=== PATIENT | male | born 1965 | race Caucasian/White ===

== ENCOUNTER 2016-10-30 18:53 | Inpatient (IN) | payer BC, OTHER ==
[~2016-10-30] VITALS: Ht 185.4 cm; Wt 68.0 kg
[2016-10-30 20:00] VITALS: BP 115/63
--- NOTE | 2016-10-30 20:00 | NUR ---
Admission Note Pt is a 51 year old male admitted to [facility] on 10/30/2016 for ETOH/Benzo/Methamphetamine Dependence - on the unit at 2000. Pt has NKA, reports hx of seizure - last seizure on September 2016 d/t withdrawal. Pt was able to provide urine drug screen. Upon admission CIWA 4, VS: 115/64, P 79, Temp 97.39, R 16, SpO2 96%, no pain rated 0/10, weight 150 and height 6'0". Pt does not have a primary care provider, has reports being hospitalized on "08/2016 because of swollen feet" as reported per pt. Pt is currently homeless. Pt is a poor historian d/t intoxication. Substance abuse history is as follows: 1. ETOH - Vodka 1 liter/daily, last intake of "half a botte" on 10/30/2016, at this rate for 11 days, pt reports he has been drinking since age 14. 2. Xanax - 1mg/daily, last intake of 1mg on 10/28/2016, at this rate for the past month. 3. Methamphetamine 5g/daily via smoke, last intake of 5g via smoke on 10/29/2016. When does not use, he experiences, "I shake all over and get depressed" Treatment hx as reported by patient: 1. [facility], 2. [facility] in 2015 and 3. [facility], September 2016. Pt longest sober period is for 3 years from [id number], as stated by pt. Pt's father and brother use cocaine, as reported by pt. Pt reports he smokes 1 pack/daily. PMH: Diabetes Mellitus, Pancreatitis, Anxiety and Depression. Pt denies sx history. Pt brought medications, reconciled. Upon assessment, intoxicated, is a poor historian, is arousable, cooperative, PERRLA. Breathing is even and unlabored, lungs sounds clear in all lobes, heart rate regular, denies SOB/chest pain, skin, warm - moist and intact - no wounds/skin abrasions noted. Bowel sounds active x4, abdomen soft. Ankles noted to have +1 edema - feet/ankles elevated on pillow. Pt denies SI/HI, education handouts provided, at bedside. Pt oriented to room and encouraged to notify staff with any concerns. Safety measures in place, call light within reach, bed locked and in low position. Will continue to monitor. Addendum: 10/31/16 at 0600 by VALERIE PINZON RN Treatment History Clarified: [facility] d/t swollen ankles
[2016-10-30] MEDS ORDERED: MAGNESIUM HYDROXIDE 30 ML LIQUID UDC PO PRN (22:00)
[2016-10-30] MEDS ORDERED: ACETAMINOPHEN 325 MG TABLET PO PRN (22:00)
[2016-10-30] MEDS ORDERED: THIAMINE HCL 200 MG/2 ML VIAL IM ONE (22:00)
[2016-10-30] MEDS ORDERED: diphenhydrAMINE 50 MG CAPSULE PO PRN (22:00)
[2016-10-30] MEDS ORDERED: LOPERAMIDE HCL 2 MG CAPSULE PO PRN ×2 (22:00)
[2016-10-30] MEDS ORDERED: DICYCLOMINE HCL 20 MG TABLET PO PRN (22:00)
[2016-10-30] MEDS ORDERED: MAG HYDROX/AL HYDROX/SIMETH 30 ML LIQUID UDC PO PRN (22:00)
[2016-10-30] MEDS ORDERED: LORAZEPAM 1 MG TABLET PO PRN ×2 (22:00)
[2016-10-30] MEDS ORDERED: LORAZEPAM 2 MG/1 ML VIAL IM PRN (22:00)
[2016-10-30] MEDS ORDERED: ONDANSETRON HCL 4 MG TABLET PO PRN (22:00)
[2016-10-30 23:01] LABS: ALANINE AMINOTRANSFERASE 47 U/L (16-63); ALKALINE PHOSPHATASE 71 U/L (50-136); AMYLASE 91 U/L (25-115); ASPARTATE AMINOTRANSFERASE 35 U/L (15-37); BILIRUBIN,TOTAL 0.2 mg/dL (0.2-1.0); CALCIUM 8.8 mg/dL (8.5-10.1); CARBON DIOXIDE 30 mmol/L (21-32); CHLORIDE 105 mmol/L (98-107); CREATININE 0.9 mg/dL (0.6-1.3); GFR 90 mL/min (>60); GLUCOSE 183 mg/dL (74-106); LIPASE 127 U/L (73-393); MAGNESIUM 1.8 mg/dL (1.8-2.4); POTASSIUM 3.5 mmol/L (3.5-5.1); SODIUM SERUM 141 mmol/L (136-145); TOTAL PROTEIN, SERUM 6.1 g/dL (6.4-8.2); UREA NITROGEN, BLOOD 17 mg/dL (7-18)
[2016-10-30 23:09] LABS: BASOPHILS % (AUTO) 0.6 % (0.0-2.0); EOSINOPHILS # (AUTO) 0.1 K/uL (0.0-0.7); EOSINOPHILS % (AUTO) 1.8 % (0.0-7.0); HEMATOCRIT 32.7 % (40.0-50.0); HEMOGLOBIN 10.8 g/dL (14.0-18.0); LYMPHOCYTES # (AUTO) 2.1 K/uL (0.8-4.8); MEAN CORPUSCULAR HEMOGLOBIN 31.7 uug (27.0-31.0); MEAN CORPUSCULAR HGB CONC 33 g/dL (32.0-37.0); MEAN CORPUSCULAR VOLUME 95.8 fL (82.0-92.0); MONOCYTES # (AUTO) 0.7 K/uL (0.1-1.30); MONOCYTES % (AUTO) 10.5 % (0.0-11.0); NEUTROPHILS # (AUTO) 3.9 K/uL (1.8-8.9); NEUTROPHILS % (AUTO) 56.1 % (38.5-71.5); PLATELET COUNT (AUTO) 259 K/uL (150-450); RED BLOOD CELL COUNT(AUTO) 3.41 MIL/uL (4.70-6.10); RED CELL DISTRIBUTION WIDTH 12.8 % (11.5-14.5); WHITE BLOOD COUNT (AUTO) 6.8 K/uL (4.0-11.2)
[2016-10-30 23:14] LABS: THYROID STIMULATING HORMONE 2.829 mIU/mL (0.358-3.740)
[2016-10-30 23:18] LABS: ETHANOL < 3 MG/DL (0-0); HIV-1 p24 ANTIGEN NON REACTIVE (NONREACTIVE); HIV-1/2 ANTIBODY NON REACTIVE (NONREACTIVE)
[2016-10-30] MEDS ORDERED: DEXTROSE 50% 50 ML DISP.SYRIN IV PRN (23:45)
--- NOTE | 2016-10-30 23:50 | NUR ---
INSULIN ADMINISTRATION Pt has diagnosis of DM. Accu-check completed - Blood Sugar 218 Humulin R 4 units administered in left deltoid as ordered per-sliding scale orders. Safety measures in place, call light within reach, side rails up x2, bed locked and in low position. Will continue to monitor.
[2016-10-31] VITALS: BP 131/86
--- NOTE | 2016-10-31 | NUR ---
Vital Signs BP 131/86, pulse 98, SpO2 97%, respirations 16, temp 97.9, 0/10 pain CIWA deferred d/t pt sleeping - to assess while pt is awake as ordered. No s/s of distress noted, respirations even and unlabored. Safety measures in place, call light within reach, side rails up x2, bed locked and in low position. Will continue to monitor.
[2016-10-31] MEDS: BLOOD SUGAR DIAGNOSTIC 1 EACH STRIP VI SCH ×5 (00:02→21:49)
[2016-10-31] MEDS: INSULIN REGULAR, HUMAN 300 UNIT/3 ML VIAL SQ PRN ×5 (00:11→21:51)
[2016-10-31 01:58] LABS: *AMPHETAMINE, URINE POSITIVE (NEGATIVE); *BARBITURATE, URINE NEGATIVE (NEGATIVE); *CANNABINOID, URINE NEGATIVE (NEGATIVE); *COCCAINE, URINE NEGATIVE (NEGATIVE); *OPIATE, URINE NEGATIVE (NEGATIVE); *PHENCYCLIDINE SCREEN,URINE NEGATIVE (NEGATIVE)
[2016-10-31 04:00] VITALS: BP 119/70
--- NOTE | 2016-10-31 04:00 | NUR ---
Vital Signs BP 119/70, pulse 72, SpO2 98%, respirations 16, temp 97.7, 0/10 pain CIWA deferred d/t pt sleeping - to assess while pt is awake as ordered. No s/s of distress noted, respirations even and unlabored. Safety measures in place, call light within reach, side rails up x2, bed locked and in low position. Will continue to monitor.
[2016-10-31] MEDS ORDERED: ACET-73 PO (04:11)
[2016-10-31] MEDS ORDERED: NEOM14.216 TP (04:11)
[2016-10-31] MEDS ORDERED: METF850T2 PO (04:11)
[2016-10-31] MEDS ORDERED: CITA20TA11 PO (04:11)
[2016-10-31] MEDS ORDERED: SENN25TA PO (04:11)
[2016-10-31] MEDS: IBUPROFEN 400 MG TABLET PO PRN (05:52)
[2016-10-31] MEDS: CLONIDINE HCL 0.1 MG TABLET PO PRN (05:53)
[2016-10-31] MEDS ORDERED: IBUPROFEN 400 MG TABLET ONE (05:59)
[2016-10-31] MEDS ORDERED: CLONIDINE HCL 0.1 MG TABLET ONE (05:59)
--- NOTE | 2016-10-31 05:59 | NUR ---
PRN Administered Upon awakening, pt reports muscle aches, anxiety, agitation noted, skin clammy. Clonidine 0.1mg PRN and Motrin 400mg PRN administered. Safety measures in place, will continue to monitor.
--- NOTE | 2016-10-31 07:00 | NUR ---
End of Shift Pt is a 51 year old male admitted on 10/30/2016 for ETOH/benzo/meth dependence. NKA, regular diet, fall/seizure precautions and full code. PMH: DM, Pancreatitis, anxiety and depression, last seizure in September 2016 d/t withdrawal. Pt UDS came back positive for amphetamines. During shift, Accu-check completed - Pt Blood Sugar 218, Humulin R 4 units administered in left deltoid as ordered per-sliding scale orders. Clonidine 0.1mg and Motrin 400mg PRN administered. Pt refused Vitamin B1 inj. CIWA 4, pt slept for 8 hours, intake of 2012 ml Po and voids x1. Safety measures in place, call light within reach, side rails up x2, bed locked and in low position. Endorsed to day shift nurse.
--- NOTE | 2016-10-31 07:30 | NUR ---
START OF SHIFT Received report from night coordinator nurse. 51 year old male patient admitted on 10/30/16 for ETOH, Xanax, and Methamphetamine dependence. Pt has been using for 11 days. Pt has hx of Diabetes Mellitus, pancreatitis, anxiety and depression. Pt is A/O x4. no taper has been started yet. Pt is receiving PRN medications. Pt reports history of seizure in sep 2016. Pt received PRN Clonidine and Motrin, slept for 8 hours. Most recent CIWA 4. Pt has accu check AC/HS and is receiving PO Glucophage and Insulin sliding scale. Pt is A/O x4. All needs met at this time. Will continue to monitor.
[2016-10-31 08:30] VITALS: BP 107/78
[2016-10-31] MEDS: METFORMIN HCL 500 MG TABLET PO SCH ×2 (08:32→17:15)
[2016-10-31] MEDS: THIAMINE HCL 100 MG TABLET PO SCH (08:33)
[2016-10-31] MEDS: FOLIC ACID 1 MG TABLET PO SCH (08:33)
[2016-10-31] MEDS: MULTIVITAMINS,THERAPEUTIC TABLET PO SCH (08:33)
--- NOTE | 2016-10-31 08:34 | NUR ---
PRN ATIVAN Pt has CIWA of 7, presents with signs of tremors, sweats, anxiety, agitation and itching, per MD order 1mg Ativan administered as ordered. Will reassess.
[2016-10-31] MEDS ORDERED: TUBERCULIN,PURIF.PROT.DERIV. 5 TU/0.1 ML TEST ID ONE (09:00)
--- NOTE | 2016-10-31 09:20 | NUR ---
PPD ADMINISTERED PD administered on LFA, to be read on 11/02/16.
--- NOTE | 2016-10-31 09:35 | NUR ---
REASSESSMENT Pt CIWA is 4, after PRN Ativan. Pt states anxiety decreased and denies dizziness, pt does not show signs of agitation.
[2016-10-31] MEDS ORDERED: LORAZEPAM 1 MG TABLET PO ONE (11:00)
--- NOTE | 2016-10-31 11:00 | NUR ---
ATIVAN HELD Pt is sedated, Ativan held at this time. RR even and unlabored. Will continue to monitor.
[2016-10-31] MEDS: LORAZEPAM 1 MG TABLET PO SCH ×3 (12:12→21:46)
--- NOTE | 2016-10-31 12:22 | NUR ---
ULTRASOUND ORDERED Ultrasound ordered on 11/01/16 for abdominal distension,per US tech, pt must be NPO at midnight for at least 8 hours. Will notify
[2016-10-31 13:00] VITALS: BP 116/80
[2016-10-31] MEDS: GABAPENTIN 300 MG CAPSULE PO SCH ×2 (14:18→21:46)
[2016-10-31 16:00] VITALS: BP 123/79
[2016-10-31] MEDS: METHOCARBAMOL 750 MG TABLET PO PRN ×2 (18:10→21:47)
--- NOTE | 2016-10-31 18:10 | NUR ---
PRN ROBAXIN Pt c/o of 8 body aches that are unrelieved bu nonpharmacological methods. PRN Robaxin administered as ordered.
--- NOTE | 2016-10-31 19:21 | NUR ---
END OF SHIFT Received report from lieutenant shift supervisor nurse. 51 year old male patient admitted on 10/30/16 for ETOH, Xanax, and Methamphetamine dependence. Pt has been using for 11 days. Pt has hx of Diabetes Mellitus, pancreatitis, anxiety and depression. Pt is A/O x4. Pt has been started on a 5 day Ativan taper and is tolerating it well. Pt reports history of seizure in sep 2016. Pt remains seizure free throughout shift. Most recent CIWA 6. Pt has accu check AC/HS and is receiving PO Glucophage and Insulin sliding scale. Pt remains compliant. PRN Robaxin was administered. Pt is to be NPO except meds after midnight. Pt is aware. V/S remain WNL All needs met at this time. assembler 1st shift nurse continue to monitor.
--- NOTE | 2016-10-31 19:30 | NUR ---
START OF SHIFT NOTE: Patient is a 51 y/o male admitted on 10/30/16 for ETOH/Xanax/Meth dependence. Pateint with past medical history of Diabetes Mellitus, Pancreatitis, Anxiety & Depression. Seizure and Fall precautions noted. Patient is on a consistent carb diet with no known food and drug allergies. Full Code status. Patient is NPO after midnight in preparation for his scheduled abdominal MILEY for tomorrow. Patient is aware and verbalized understanding. Patient is on a 5-day Ativan taper and tolerating well. Last CIWA is 6. Patientwas given PRN Robaxin for body aches during day shift. Patient is alert & oriented x4. No shortness of breath noted. Respiration even & unlabored. Abdomen soft & non-distended. Bowel sounds active in all four quadrants. No nausea/vomiting noted. Patient complains of 8/10 body aches. Bilateral hand tremors felt. No hallucinations. Patient denies SI/HI. Safety precautiopns are in place. Bed locked in lowest position. Both side rails up. Call light within pt's reach. Will continue to monitor patient.
[2016-10-31 20:00] VITALS: BP 114/61
[2016-10-31] MEDS ORDERED: TRAZODONE 50 MG TABLET ONE (21:38)
[2016-10-31] MEDS: TRAZODONE 100 MG TABLET PO PRN (21:47)
--- NOTE | 2016-10-31 21:47 | NUR ---
PRN Trazodone Patient complains of insomnia. PRN Trazodone given as ordered. Will continue to monitor.
--- NOTE | 2016-10-31 22:47 | NUR ---
PRN Reassessment Patient asleep in bed and appears comfortable. No shortness of breath noted. Respiration even & unlabored. Safety precautions are in place. Will continue to monitor patient.
--- NOTE | 2016-11-01 | NUR ---
Vitals/Ciwa deferred Patient refused vitals at this time. No shortness of breath noted. Respiration even & unlabored. Safety precautions are in place. Will continue to monitor.
[2016-11-01] MEDS: METHOCARBAMOL 750 MG TABLET PO PRN (02:44)
--- NOTE | 2016-11-01 04:00 | NUR ---
Vitals/Ciwa deferred Patient refused vitals at this time. Patient asleep at this time. No shortness of breath noted. Respiration even & unlabored. Safety precautions are in place. Will continue to monitor.
--- NOTE | 2016-11-01 05:30 | NUR ---
RN NOTE Pt refused to remain on NPO for his abdominal MILEY procedure in AM. Pt stated "I did not agree for this MILEY and I don't need it. I dont have any abdominal pain and I go to the bathroom regularly. I am hungry and I want to eat." Explained to patient risk and benefits but still refused. Charge nurse made aware. Will notify MD in AM.
--- NOTE | 2016-11-01 07:17 | NUR ---
END OF SHIFT NOTE: Patient is a 51 y/o male admitted on 10/30/16 for ETOH/Xanax/Meth dependence. Pateint with past medical history of Diabetes Mellitus, Pancreatitis, Anxiety & Depression. Seizure and Fall precautions noted. Patient is on a consistent carb diet with no known food and drug allergies. Full Code status. Patient refuses to have an abdominal MILEY later today and refused to remain NPO. Patient is non-compliant and refused vitals at 0000 & 0400. Patient is on a 5-day Ativan taper and tolerating well. Last CIWA is 6. Pt was given PRN Robaxin and were effective. Pt slept for a total of 10 hours. Pt consumed 1210ml of fluids. Voided 2x with no bowel movement. Pt remained stable and vitals remained WNL. No shortness of breath noted. Respiration even & unlabored.All needs attended & met. Safety precautions are in place. Will endorse pt to day shift nurse.
--- NOTE | 2016-11-01 07:45 | NUR ---
START OF SHIFT Received report from overnight associate nurse. 51 year old male patient admitted on 10/30/16 for ETOH, Xanax, and Methamphetamine dependence. Pt has been using at this rate for 11 days. Pt has hx of Diabetes Mellitus, pancreatitis, anxiety and depression. Pt is A/O x4. Pt has been started on a 5 day Ativan taper and is tolerating it well. Pt reports history of seizure in sep 2016. Pt remains seizure free throughout shift. Most recent CIWA 6. Pt has accu check AC/HS and is receiving PO Glucophage and Insulin sliding scale. Pt remains compliant. Most recent BG was 164 HS, 3 units of regular Insulin administered. PRN Robaxin was administered and Trazodone administered, pt slept for 10 hours. Pt is noncompliant with NPO order and continues to eat, education provided, MD is aware. Pt is aware. MRSA swab done and results are pending. V/S remain WNL All needs met at this time. Will continue to monitor.
[2016-11-01 08:19] VITALS: BP 120/81
[2016-11-01] MEDS: INSULIN REGULAR, HUMAN 300 UNIT/3 ML VIAL SQ PRN ×3 (08:23→21:27)
[2016-11-01] MEDS: BLOOD SUGAR DIAGNOSTIC 1 EACH STRIP VI SCH ×4 (08:23→21:29)
[2016-11-01] MEDS: MULTIVITAMINS,THERAPEUTIC TABLET PO SCH (08:24)
[2016-11-01] MEDS: METFORMIN HCL 500 MG TABLET PO SCH ×2 (08:24→17:05)
[2016-11-01] MEDS: THIAMINE HCL 100 MG TABLET PO SCH (08:24)
[2016-11-01] MEDS: FOLIC ACID 1 MG TABLET PO SCH (08:25)
[2016-11-01] MEDS: GABAPENTIN 300 MG CAPSULE PO SCH ×3 (08:25→21:29)
[2016-11-01] MEDS: LORAZEPAM 1 MG TABLET PO SCH ×3 (08:25→21:28)
[2016-11-01 11:07] LABS: HEPATITIS B CORE AB, IgM Negative (Negative); HEPATITIS B SURFACE AG Negative (Negative)
[2016-11-01] MEDS ORDERED: CITALOPRAM 20 MG TABLET PO SCH (13:00)
[2016-11-01 13:07] VITALS: BP 114/78
[2016-11-01] MEDS: CITALOPRAM 20 MG TABLET PO SCH (15:38)
[2016-11-01 17:08] VITALS: BP 121/79
--- NOTE | 2016-11-01 18:37 | NUR ---
END OF SHIFT 51 year old male patient admitted on 10/30/16 for ETOH, Xanax, and Methamphetamine dependence. Pt has been using at this rate for 11 days. Pt has hx of Diabetes Mellitus, pancreatitis, anxiety and depression. Pt is A/O x4. Pt has been started on a 5 day Ativan taper and is tolerating it well. Pt remains seizure free throughout shift. Most recent CIWA 3. Pt has accu check AC/HS and is receiving PO Glucophage and Insulin sliding scale. Last BG was 149, 2 units regular Insulin administered as ordered. No PRN medications needed or administered .Pt remains compliant. Abdominal ultrasound done to r/o ascites, results do not indicate ascites, MD is aware. MRSA swab done and results are negative. V/S remain WNL All needs met at this time. slot shift supervisor to continue to monitor.
--- NOTE | 2016-11-01 19:30 | NUR ---
START OF SHIFT NOTE: Patient is a 51 y/o male admitted on 10/30/16 for ETOH/Xanax/Meth dependence. Pateint with past medical history of Diabetes Mellitus, Pancreatitis, Anxiety & Depression. Seizure and Fall precautions noted. Patient is on a consistent carb diet with no known food and drug allergies. Full Code status. Patient is on a 5-day Ativan taper and tolerating well. Last CIWA is 3. No PRN medications given during day shift. Patient is alert & oriented x4. No shortness of breath noted. Respiration even & unlabored. Abdomen soft & non-distended. Bowel sounds active in all four quadrants. No nausea/vomiting noted. No complaints of pain/discomfort noted. Bilateral hand tremors felt. No hallucinations. Patient denies SI/HI. Safety precautiopns are in place. Bed locked in lowest position. Both side rails up. Call light within pt's reach. Will continue to monitor patient.
[2016-11-01 20:00] VITALS: BP 118/69
[2016-11-01] MEDS ORDERED: INSULIN DETEMIR 300 UNIT/3 ML CARTRIDGE SQ SCH (21:00)
[2016-11-01] MEDS ORDERED: INSULIN GLARGINE,HUM 300 UNITS/3 ML CARTRIDGE SQ SCH (21:00)
[2016-11-01] MEDS: TRAZODONE 100 MG TABLET PO PRN (21:36)
--- NOTE | 2016-11-02 07:15 | NUR ---
END OF SHIFT NOTE: Patient is a 51 y/o male admitted on 10/30/16 for ETOH/Xanax/Meth dependence. Patient with past medical history of Diabetes Mellitus, Pancreatitis, Anxiety & Depression. Seizure and Fall precautions noted. Patient is on a consistent carb diet with no known food and drug allergies. Full Code status. Patient is on a 5-day Ativan taper and tolerating well. Last CIWA is 3. No PRN medications were given. Pt slept for a total of 10 hours. Pt consumed 1210ml of fluids. Voided 2x with 1x bowel movement. Pt remained stable and vitals remained WNL. Patient still asleep at this time. No shortness of breath noted. Respiration even & unlabored. All needs attended & met. Safety precautions are in place. Will endorse pt to day shift nurse.
--- NOTE | 2016-11-02 07:55 | NUR ---
START OF SHIFT: RECEIVED PT A/O X 4. SITTING UP IN BED EATING COOKIES. EDUCATED PT ON IMPORTANCE OF EATING PROPERLY WITH DIABETES. BS 187. 3 UNITS HUMULIN R ADMINISTERED SQ ORDERED PER SLIDING SCALE. HE REPORTS SOME ANXIETY AND RESTLESSNESS. 5 DAY ATIVAN TAPER IN PROGRESS. CIWA 2. ENCOURAGED INCREASED FLUIDS. ENCOURAGED GROUP ATTENDANCE TO IMPROVE COPING SKILLS AND PREVENT RELAPSE. WILL CONTINUE TO MONITOR.
[2016-11-02 08:00] VITALS: BP 122/79
[2016-11-02] MEDS: BLOOD SUGAR DIAGNOSTIC 1 EACH STRIP VI SCH ×4 (08:04→20:45)
[2016-11-02] MEDS: MULTIVITAMINS,THERAPEUTIC TABLET PO SCH (08:05)
[2016-11-02] MEDS: METFORMIN HCL 500 MG TABLET PO SCH ×2 (08:05→17:19)
[2016-11-02] MEDS: GABAPENTIN 300 MG CAPSULE PO SCH ×3 (08:05→20:38)
[2016-11-02] MEDS: LORAZEPAM 1 MG TABLET PO SCH ×4 (08:06→20:51)
[2016-11-02] MEDS: THIAMINE HCL 100 MG TABLET PO SCH (08:06)
[2016-11-02] MEDS: FOLIC ACID 1 MG TABLET PO SCH (08:06)
[2016-11-02] MEDS: CITALOPRAM 20 MG TABLET PO SCH (08:06)
[2016-11-02] MEDS: INSULIN REGULAR, HUMAN 300 UNIT/3 ML VIAL SQ PRN ×5 (08:08→20:49)
[2016-11-02 12:00] VITALS: BP 113/64
[2016-11-02 16:00] VITALS: BP 119/78
--- NOTE | 2016-11-02 18:25 | NUR ---
END OF SHIFT: PT CONTINUES ON ATIVAN TAPER. HE PRESENTS WITH IRRITABLE MOOD AND CONGRUENT AFFECT. HE BECAME EASIL AGITATED IN AM BUT HAS BECOME MORE CALM LATER IN SHIFT. LAST CIWA 3. LAST BS 234. 4 UNITS R GIVEN PER SLIDING SCALE. EDUCATED PT ON DIET AND PROPER NUTRITION. PT EXPRESSED VERBAL UNDERSTANDING OF EDUCATION. NO PRNS GIVEN ON THIS SHIFT. WILL PASS SHIFT REPORT TO ONCOMING NIGHT NURSE
--- NOTE | 2016-11-02 19:30 | NUR ---
START OF SHIFT NOTE: Patient is a 51 y/o male admitted on 10/30/16 for ETOH/Xanax/Meth dependence. Pateint with past medical history of Diabetes Mellitus, Pancreatitis, Anxiety & Depression. Seizure and Fall precautions noted. Patient is on a consistent carb diet with no known food and drug allergies. Full Code status. Patient is on a 5-day Ativan taper and tolerating well. Last CIWA is 3. No PRN medications given during day shift. Patient has new order Seroquel PRN for agitation. Patient is alert & oriented x4. No shortness of breath noted. Respiration even & unlabored. Abdomen soft & non-distended. Bowel sounds active in all four quadrants. No nausea/vomiting noted. No complaints of pain/discomfort noted. Bilateral hand tremors felt. Patient apears anxious and agitated during vitals. No hallucinations. Patient denies SI/HI. Safety precautiopns are in place. Bed locked in lowest position. Both side rails up. Call light within pt's reach. Will continue to monitor patient.
[2016-11-02 20:00] VITALS: BP 130/85
[2016-11-02] MEDS: QUETIAPINE FUMARATE 25 MG TABLET PO PRN (20:38)
[2016-11-02] MEDS: TRAZODONE 100 MG TABLET PO PRN (20:38)
--- NOTE | 2016-11-02 20:38 | NUR ---
PRN administered Patient noted to be agitated and refused vitals. Offered patient Seroquel medication for agitation and pt agreed. PRN Seroquel given as ordered. Patient also requested for medication for sleep. PRn Trazodone given as ordered. Will monitor for effectiveness of medication.
[2016-11-02] MEDS: INSULIN DETEMIR 300 UNIT/3 ML CARTRIDGE SQ SCH (20:47)
--- NOTE | 2016-11-02 21:00 | NUR ---
RN Note Manually administered Ativan 1mg medication scheduled at 2100. Unable to scan barcode d/t half of barcode is gone. Charge nurse is aware.
--- NOTE | 2016-11-02 21:38 | NUR ---
PRN Reassessment PRN medication effective. Patient asleep at this time and appeaers comfortable. No shortness of breath noted. Respiration even & unlabored. Will continue to monitor patient.
--- NOTE | 2016-11-03 04:00 | NUR ---
Vitals/Ciwa deferred Patient refused vitals at this time. Patient asleep in bed and appears comfortable. No s/s of distress noted. respiration even & unlabored. Safety precautions are in place. Will continue to monitor patient.
--- NOTE | 2016-11-03 07:11 | NUR ---
END OF SHIFT NOTE: Patient is a 51 y/o male admitted on 10/30/16 for ETOH/Xanax/Meth dependence. Patient with past medical history of Diabetes Mellitus, Pancreatitis, Anxiety & Depression. Seizure and Fall precautions noted. Patient is on a consistent carb diet with no known food and drug allergies. Full Code status. Patient is on a 5-day Ativan taper and tolerating well. Last CIWA is 5. Pt was given PRN Trazodone for sleep and Seroquel for agitation and were effective. Pt slept for a total of 9 hours. Pt consumed 1846 ml of fluids. Voided 2x with no bowel movement. Pt remained stable and vitals remained WNL. Patient still asleep at this time. No shortness of breath noted. Respiration even & unlabored. All needs attended & met. Safety precautions are in place. Will endorse pt to day shift nurse.
--- NOTE | 2016-11-03 07:30 | NUR ---
START OF SHIFT NOTE: REPORT RECEIVED FROM AIRLINE HOSTESS NURSE. PT IS A 51YO MALE ADMITTED ON 10/30/16 FOR MEDICALLY SUPERVISED WITHDRAWAL: PT REPORTS DRINKING 1 LITER VODKA DAILY FOR 11 DAYS, TAKING XANAX 1MG PO DAILY FOR 1 MONTH, AND SMOKING 5GM METHAMPHETAMINE DAILY. PT IS ON DAY 4 OF A 5-DAY ATIVAN TAPER. LAST AIRLINE HOSTESS CIWA=5. PT RECEIVED PRN SEROQUEL AND PRN TRAZODONE THROUGHOUT THE NIGHT. PT HAS [facility] ACCU-CHECKS FOR DM; LAST AIRLINE HOSTESS FSBG WAS 131 MG/DL AND 2 UNITS INSULIN ADMINISTERED LAST NIGHT. PT IS ON CC CARB DIET AND PT IS NOT COMPLIANT. TB TO BE READ TODAY. PT REPORTS HX OF PANCREATITIS, ANXIETY, AND DEPRESSION. PT REPORTS HX OF SEIZURE, LAST IN 09/2070 R/T WITHDRAWAL. PT REPORTS NKA AND IS A FULL CODE. PT IS CURRENTLY AWAKE, SHOWERED, AND REQUESTING TO GO SMOKE. PT IS FRIENDLY UPON ASSESSMENT, BUT REPORTS ANXIETY AND AGITATION. ALL NEEDS ATTENDED AND MET AT THIS TIME. WILL CONTINUE TO MONITOR.
[2016-11-03 08:00] VITALS: BP 111/77
--- NOTE | 2016-11-03 08:17 | NUR ---
07:30 Accu-Chek AC Accu-Chek : FSBG is 91 mg/dL No insulin coverage required.
[2016-11-03] MEDS: THIAMINE HCL 100 MG TABLET PO SCH (08:22)
[2016-11-03] MEDS: FOLIC ACID 1 MG TABLET PO SCH (08:22)
[2016-11-03] MEDS: MULTIVITAMINS,THERAPEUTIC TABLET PO SCH (08:22)
[2016-11-03] MEDS: CITALOPRAM 20 MG TABLET PO SCH (08:22)
[2016-11-03] MEDS: METFORMIN HCL 500 MG TABLET PO SCH ×2 (08:22→17:13)
[2016-11-03] MEDS: LORAZEPAM 1 MG TABLET PO SCH ×3 (08:23→20:11)
[2016-11-03] MEDS: QUETIAPINE FUMARATE 25 MG TABLET PO PRN ×3 (08:23→20:11)
[2016-11-03] MEDS: GABAPENTIN 300 MG CAPSULE PO SCH ×3 (08:23→20:11)
[2016-11-03] MEDS: BLOOD SUGAR DIAGNOSTIC 1 EACH STRIP VI SCH ×4 (08:23→20:13)
--- NOTE | 2016-11-03 08:23 | NUR ---
PRN Seroquel: Pt c/o anxiety and agitation. Administered PRN Seroquel as ordered. Will continue to monitor.
--- NOTE | 2016-11-03 09:30 | NUR ---
Reassessment: Pt reports that PRN Seroquel was effective at reducing agitation. PRN Seroquel effective. Will continue to monitor.
[2016-11-03 12:00] VITALS: BP 109/72
--- NOTE | 2016-11-03 12:10 | NUR ---
11:30 Accu-Chek/Humulin-R 3 Units Ordered 11:30 AC blood glucose 168 mg/dL. Administered 3 units Humulin-R in right posterior deltoid as ordered according to sliding scale.
[2016-11-03] MEDS: INSULIN REGULAR, HUMAN 300 UNIT/3 ML VIAL SQ PRN ×3 (12:11→20:17)
[2016-11-03] MEDS: HYDROXYZINE PAMOATE 25 MG CAPSULE PO PRN (12:39)
[2016-11-03] MEDS: CLONIDINE HCL 0.1 MG TABLET PO PRN (12:40)
--- NOTE | 2016-11-03 12:40 | NUR ---
PRN Vistaril and PRN Clonidine: Pt c/o anxiety and agitation. Administered PRN Clonidine and PRN Vistaril as ordered. Will reassess in one hour.
--- NOTE | 2016-11-03 13:47 | NUR ---
Reassessment and PRN Seroquel: Pt reports that he is still feeling anxious and agitated. PRN Clonidine and PRN Vistaril not effective. Administered PRN Seroquel as ordered for agitation. Will continue to monitor.
--- NOTE | 2016-11-03 14:45 | NUR ---
Reassessment: Pt reports that PRN Seroquel was effective. Will continue to monitor.
[2016-11-03 16:00] VITALS: BP 120/80
--- NOTE | 2016-11-03 16:53 | NUR ---
16:30 Accu-chek/Humulin-R 8 Units: 16:30 ordered Accu-Chek blood glucose 330 mg/dL. Administered 8 units Humulin-R as ordered according to sliding scale. Educated pt regarding dietary compliance for DM. Pt verbalized understanding. Will continue to monitor.
--- NOTE | 2016-11-03 19:05 | NUR ---
Start of Shift Patient Received. Patient is in his room, awake, alert and verbally responsive. Breathing even and non labored. No signs of pain or discomfort noted. Patient is a 51 year old male admitted on 10/30/16 for ETOH Dependence, under the care of Dr. Green, currently receiving a 5 day Ativan taper. Patient verbalizes no known allergies, wishes to be full code, following a Consistent Carb Diet, placed on fall and seizure precautions. Past Medical History of DM, Pancreatitis, anxiety, and depression. Per endorsement, patient receives accu checks prior to meals and before bed. 8 units of insulin given at 1700. Last CIWA noted 7. Patient was given PRN Clonidine, Vistaril and Seroquel with all PRN medications noted to be effective. All needs attended to promptly. Will continue plan of care as ordered.
--- NOTE | 2016-11-03 19:24 | NUR ---
END OF SHIFT NOTE: PT IS A 51YO MALE ADMITTED TO [facility] ON 10/30/16 FOR MEDICALLY SUPERVISED WITHDRAWAL FROM ETOH AND BENZOS. PT REPORTS DRINKING 1 LITER VODKA DAILY FOR 11 DAYS, TAKING XANAX 1MG PO DAILY FOR 1 MONTH, AND SMOKING 5GM METHAMPHETAMINE DAILY. PT CONTINUES ON DAY 4 OF A 5-DAY ATIVAN TAPER. LAST CIWA=7 AT 16:00. ATIVAN TAPER MANAGED WITHDRAWAL SYMPTOMS, IN ADDITION TO PRN CLONIDINE AND PRN VISTARIL FOR ANXIETY, AND PRN SEROQUEL X2 FOR AGITATION. PT HAS [facility] ACCU-CHECKS FOR DM; LAST FSBG WAS 330 MG/DL AND 8 UNITS INSULIN ADMINISTERED AT 16:53. PT IS ON CC CARB DIET AND NOT COMPLIANT. TB READ TODAY WITH NEGATIVE RESULTS. PT REPORTS HX OF PANCREATITIS, ANXIETY, AND DEPRESSION. PT REPORTS HX OF SEIZURE, LAST IN 09/2070 R/T WITHDRAWAL. PT REPORTS NKA AND IS A FULL CODE. PT CONSUMED 100% OF ALL MEALS, HAD INTAKE 3275ML, OUTPUT URINE X5 AND STOOL X3. PT ENDORSED TO LEATHER WHITENER NURSE
[2016-11-03 20:06] VITALS: BP 129/81
--- NOTE | 2016-11-03 20:15 | NUR ---
PRN Medication Administration Patient noted to be agitated with increased anxiety. PRN Seroquel administered as ordered. Will continue to monitor for effectiveness.
[2016-11-03] MEDS: INSULIN DETEMIR 300 UNIT/3 ML CARTRIDGE SQ SCH (20:16)
--- NOTE | 2016-11-03 22:30 | NUR ---
PRN Medication Reassessment Patient noted in bed sleeping. PRN Seroquel noted to be effective. Will continue to monitor.
--- NOTE | 2016-11-04 00:15 | NUR ---
Vitals and CIWA Patient refused 0000 vitals prior to bed. Patient verbalized "I just want to sleep." Patient is in bed sleeping. Breathing even and non labored. No signs of pain or discomfort noted. Patient respirations noted to be 14. CIWA not able to be completed as per order. Will continue to monitor. Addendum: 11/04/16 at 0122 by SILVINO ZAMUDIO LVN Amended: Links added.
--- NOTE | 2016-11-04 04:13 | NUR ---
Vitals and CIWA Patient refused 0400 vitals prior to bed. Patient verbalized "I just want to sleep." Patient is in bed sleeping. Breathing even and non labored. No signs of pain or discomfort noted. Patient respirations noted to be 14. CIWA not able to be completed as per order. Will continue to monitor. Addendum: 11/04/16 at 0414 by SILVINO ZAMUDIO LVN Amended: Links added.
[2016-11-04] MEDS: QUETIAPINE FUMARATE 25 MG TABLET PO PRN (04:47)
--- NOTE | 2016-11-04 04:47 | NUR ---
PRN Seroquel: Pt reported agitation after waking up and being unable to go back to sleep. Pt noted with increased agitation and walking in and out of his room. Pt requested medication for his agitation. PRN Seroquel given as ordered. Will continue to monitor.
--- NOTE | 2016-11-04 06:00 | NUR ---
PRN Medication Reassessment Patient noted in bed, awake, alert and verbally responsive. Breathing even and non labored. Patient given PRN Seroquel and patient able to verbalize "Im feeling a little better now." Will continue to monitor.
--- NOTE | 2016-11-04 07:08 | NUR ---
End of Shift Patient is in bed awake, alert and verbally responsive. Breathing even and non labored. No signs of pain or discomfort noted. Patient is a 51 year old male admitted on 10/30/16 for ETOH Dependence, under the care of Dr. Green, currently receiving a 5 day Ativan taper. Patient verbalizes no known allergies, wishes to be full code, following a Consistent Carb Diet, placed on fall and seizure precautions. Past Medical History of DM, Pancreatitis, anxiety, and depression. Patient noted with a BS of 175 and 3 units of Humulin as well as 8 units of Levemir. Patient was given PRN Seroquel with routine 2100 medications as well as a second dose at 0445 for increased agitation. Medications noted to be effective. Patient noted to be noncompliant with diet with MD aware. Re-educated patient on importance on proper diet. Patient verbalized understanding. All needs attended to promptly. Will endorse to continue plan of care as ordered.
--- NOTE | 2016-11-04 07:30 | NUR ---
START OF SHIFT Received report from shift production supervisor nurse. 51 year old male admitted on 10/30/16 for ETOH, benzo, and methamphetamine withdrawals. Pt is A/O x4. Hx of DM type II, pancreatitis, anxiety and depression. Accu check AC/HS, last BG was 175, 3 units of regular insulin and 8 units of scheduled Levemir administered. Pt education provided on ordered diet, pt remain noncompliant. V/S remain stable and WNL. PRN Seroquel was administered x2 at night and effective. Pt slept for 9 hours. Pt has NKA, consistent carb diet and full code. Pt is on a 5 day Ativan taper and is tolerating well. Most recent CIWA 8. Pt is ambulatory, RR even and unlabored. MRSA swab negative, US results completed and MD is aware of results, NNO. All needs met. Safety precautions are in place. Will continue to monitor.
[2016-11-04 08:29] VITALS: BP 111/80
[2016-11-04] MEDS: FOLIC ACID 1 MG TABLET PO SCH (08:32)
[2016-11-04] MEDS: METHOCARBAMOL 750 MG TABLET PO PRN ×2 (08:32→20:49)
[2016-11-04] MEDS: METFORMIN HCL 500 MG TABLET PO SCH ×2 (08:32→17:29)
[2016-11-04] MEDS: LORAZEPAM 1 MG TABLET PO SCH ×2 (08:32→20:48)
[2016-11-04] MEDS: GABAPENTIN 300 MG CAPSULE PO SCH ×3 (08:32→20:49)
[2016-11-04] MEDS: MULTIVITAMINS,THERAPEUTIC TABLET PO SCH (08:32)
[2016-11-04] MEDS: THIAMINE HCL 100 MG TABLET PO SCH (08:32)
--- NOTE | 2016-11-04 08:32 | NUR ---
MERY ROBAXIN Pt complains of 8/10 muscle pain and right ankle pain that is not relieved with nonpharmacological methods. PRN Robaxin administered as ordered. Will reassess.
[2016-11-04] MEDS: CITALOPRAM 20 MG TABLET PO SCH (08:33)
[2016-11-04] MEDS: BLOOD SUGAR DIAGNOSTIC 1 EACH STRIP VI SCH ×4 (08:36→21:00)
[2016-11-04] MEDS: INSULIN REGULAR, HUMAN 300 UNIT/3 ML VIAL SQ PRN ×2 (08:38→17:32)
--- NOTE | 2016-11-04 09:35 | NUR ---
REASSESSMENT Patient states Robaxin was effective.
--- NOTE | 2016-11-04 12:58 | NUR ---
PT REFUSING AC ACCU CHECK/1200 VITALS Pt is refusing accu check at this time. Pt education provided on importance of being compliant with diabetic diet and as ordered accu check. Pt states he does not want it at this time. Will continue to monitor.
--- NOTE | 2016-11-04 17:53 | NUR ---
VITAL SIGN REFUSAL Patient is refusing vital signs taken at 1700pm. Patient is stable at this time, RR 16, even and unlabored.
--- NOTE | 2016-11-04 18:35 | NUR ---
END OF SHIFT NOTE 51 year old male admitted on 10/30/16 for ETOH, benzo, and methamphetamine withdrawals. Pt is A/O x4. Hx of DM type II, pancreatitis, anxiety and depression. Accu check AC AT 1700, last BG was 170, 3 units of regular insulin. Patient refused 1130 accucheck and 1200 and 1600 vital signs. PRN Robaxin was administered x1 and effective. Pt has NKA, consistent carb diet and full code. Pt is on a 5 day Ativan taper and is tolerating well. Most recent CIWA 4. Pt is ambulatory, RR even and unlabored. MRSA swab negative. Patient reports numbness on R 4th and 5th digits and slight swelling on R ankle, MD aware, no new orders. BM X1. All needs met. Safety precautions are in place. milk bottler nurse will continue to monitor.
--- NOTE | 2016-11-04 19:30 | NUR ---
START OF SHIFT NOTE : Pt. is 51 year old male admitted on 10/30/16 for ETOH, benzo, and methamphetamine withdrawals. Pt is A/O x4. Hx of DM type II, pancreatitis, anxiety and depression. Accu check AC/HS. Pt education provided on ordered diet, pt remain noncompliant. V/S remain stable and WNL. Pt has NKA, consistent carb diet and full code. Pt is on a 5 day Ativan taper and is tolerating well. Most recent CIWA=4 at 16:00. Pt is ambulatory, RR=16, even and unlabored. Safety measures in place : bed on lowest position with side rails x2 up for safety, call light within reach. Will continue to monitor closely and offer help.
[2016-11-04 20:00] VITALS: BP 115/79
[2016-11-04] MEDS: TRAZODONE 100 MG TABLET PO PRN (20:48)
[2016-11-04] MEDS: INSULIN DETEMIR 300 UNIT/3 ML CARTRIDGE SQ SCH (20:59)
--- NOTE | 2016-11-04 21:00 | NUR ---
ACCU-CHECK REFUSED Pt. refused ACCU-CHECK HS, VS stable.Safety measures in place : bed on lowest position with side rails x2 up for safety, call light within reach. Will continue to monitor closely and offer help.
--- NOTE | 2016-11-04 21:05 | NUR ---
PRN TRAZADONE, ROBAXIN Pt. complains of sleeplessness and muscle spasm 01/11. PRN TRAZADONE, ROBAXIN given as ordered . Safety measures in place : bed on lowest position with side rails x2 up for safety, call light within reach. Will continue to monitor closely and offer help.
--- NOTE | 2016-11-04 22:00 | NUR ---
REASSESSMENT CAROL KENDALL Pt. is able to rest quietly and is ready to sleep , muscle spasm decreased to 2-3/10. RR=16, breathing even and unlabored. Safety measures in place : bed on lowest position with side rails x2 up for safety, call light within reach. Will continue to monitor closely and offer help.
[2016-11-05 04:00] VITALS: BP 121/75
--- NOTE | 2016-11-05 06:00 | NUR ---
PRN ROBAXIN, MOTRIN, VISTARIL Pt. complains of anxiety, body ache 5/10, muscle spasm. PRN ROBAXIN, MOTRIN, VISTARIL given as ordered. Safety measures in place : bed on lowest position with side rails x2 up for safety, call light within reach. Will continue to monitor closely and offer help.
[2016-11-05] MEDS: METHOCARBAMOL 750 MG TABLET PO PRN (06:24)
[2016-11-05] MEDS: HYDROXYZINE PAMOATE 25 MG CAPSULE PO PRN (06:24)
[2016-11-05] MEDS: IBUPROFEN 400 MG TABLET PO PRN (06:24)
--- NOTE | 2016-11-05 06:45 | NUR ---
REASSESSMENT TIAN MEDINA VISTARIL Pt. is able to rest quietly, confirmed decreased level of anxiety and pain, 2-3/10. Safety measures in place : bed on lowest position with side rails x2 up for safety, call light within reach. Will continue to monitor closely and offer help.
--- NOTE | 2016-11-05 06:49 | NUR ---
END OF SHIFT NOTE : Pt. is 51 year old male admitted on 10/30/16 for ETOH, benzo, and methamphetamine withdrawals. Pt is A/O x4. Hx of DM type II, pancreatitis, anxiety and depression.Pt. refused ACCU-Check in HS. PRN Robaxin, Trazodone, Vistaril, Motrin were given during my shift. Pt has NKA, consistent carb diet and full code. Pt is on a 5 day Ativan taper and is tolerating well. Most recent CIWA 2 at 04:00. Pt is ambulatory, RR even and unlabored. Patient reports numbness on R 4th and 5th digits and slight swelling on R ankle, MD aware, no new orders. Pt remains compliant with the treatment plan. Pt denies nausea, vomiting and diarrhea. V/S remain WNL. RR=16, even and unlabored, lungs clear upon auscultation, abdomen soft and non- distended. Pt denies nausea, vomiting and diarrhea. INTAKE= 1,200 ml, voided x 1, slept 8 hours. Safety measures in place : bed on lowest position with side rails x2 up for safety, call light within reach. Will continue to monitor closely and offer help.
--- NOTE | 2016-11-05 07:25 | NUR ---
Start of shift note SBAR report rcv'd. Pt was admitted for ETOH dependence. Pt has a PMH of DM II, pancreatitis, anxiety and depression. Pt has completed a 5 day ativan taper without any ASE. Pt is on a consistent carb diet. pt has been noncompliant with his diet and has been eating in excess. per report, is aware. Pt is currently resting in is bed watching TV. No s/s of distress noted. Will continue to monitor pt. All needs addressed at this time.
[2016-11-05] MEDS: BLOOD SUGAR DIAGNOSTIC 1 EACH STRIP VI SCH ×4 (07:40→20:50)
[2016-11-05 08:00] VITALS: BP 105/74
--- NOTE | 2016-11-05 08:09 | NUR ---
MD communication pt noted to be noncompliant with diet, pt stated that he had at least two nutrigrain bars before his accu check. Dr Green notified, stated to continue to cover him per the insulin sliding scale. Pt educated.
[2016-11-05] MEDS: INSULIN REGULAR, HUMAN 300 UNIT/3 ML VIAL SQ PRN ×2 (08:16→20:53)
[2016-11-05] MEDS: CITALOPRAM 20 MG TABLET PO SCH (08:17)
[2016-11-05] MEDS: MULTIVITAMINS,THERAPEUTIC TABLET PO SCH (08:17)
[2016-11-05] MEDS: THIAMINE HCL 100 MG TABLET PO SCH (08:17)
[2016-11-05] MEDS: GABAPENTIN 300 MG CAPSULE PO SCH ×3 (08:17→20:45)
[2016-11-05] MEDS: FOLIC ACID 1 MG TABLET PO SCH (08:17)
[2016-11-05] MEDS: METFORMIN HCL 500 MG TABLET PO SCH ×2 (08:17→17:09)
[2016-11-05 12:00] VITALS: BP 114/75
--- NOTE | 2016-11-05 12:30 | NUR ---
Med refusal Pt has a blood sugar of 152, pt refused 2 units of insulin, pt stated "I am done with that". Dr Green is aware, NNO.
[2016-11-05 16:00] VITALS: BP 121/82
--- NOTE | 2016-11-05 16:45 | NUR ---
Consult order placed for diabetic diet education,pending discharge. Earlier Dietitian provided diet education to patient. Visited patient room, unable to educate as pt not at room time of visit. Informed RN, placed handout at the table. Rd will be available upon request. Addendum: 11/05/16 at [address] Amended: Links added.
--- NOTE | 2016-11-05 17:15 | NUR ---
MD communication Pt refused to take insulin, blood sugar is 190. Dr Morales notified. Pt stated "I will take the insulin tonight, I don't want it right now". NNO at this time.
--- NOTE | 2016-11-05 18:58 | NUR ---
End of shift note t was admitted for ETOH dependence. Pt has a PMH of DM II, pancreatitis, anxiety and depression. Pt has completed a 5 day ativan taper without any ASE and has a recent CIWA of 0. Pt is on a consistent carb diet, allowed double portions of non-carbohydrate foods. Pt has been noncompliant with his diet and has been eating in excess and refused his lunch and dinner dose of insulin. Pt has a agreed to take his insuiln tonight. Pt has no complaints at this time. All needs addressed. Pt participated in groups and activities during the shift. Pt states that he feels ready for discharge. Will endorse SBAR to oncoming shift.
[2016-11-05] MEDS ORDERED: Trazodone Hcl PO (19:48)
[2016-11-05] MEDS ORDERED: Metformin Hcl PO (19:48)
[2016-11-05] MEDS ORDERED: Gabapentin PO (19:48)
[2016-11-05] MEDS ORDERED: HYDR-3895 PO (19:48)
--- NOTE | 2016-11-05 19:55 | NUR ---
Start of Shift Pt is a 51-year old, male, admitted for ETOH dependence. Pt has a PMHx of DM II, Pancreatitis, Anxiety and Depression. Pt has completed a 5 day ativan taper without any averse side. Pt is on a consistent carb diet. Pt noted to be no-compliant with diet orders. Provided education, needs further reinforcement. Pt is AAOx4, is Full Code and with NKA. No SOB noted, not in respi distress. No apparent anxiety observed nor reported. Pt is ambulatory with steady gait and with no skin issues. Fall, universal, seizure and safety prec in place. Call light within reach. Kept pt warm, dry and comfortable. Will continue to monitor.
[2016-11-05 20:00] VITALS: BP 126/85
--- NOTE | 2016-11-05 20:53 | NUR ---
RN note Accu Check Accu Check done, ZH=848 mg/dL. Administered Levemir 10 units SQ as ordered and Regular Insulin 3 units SQ. No bleeding noted. No SOB noted. No symptoms of hypoglycemia/hyperglycemia noted. Will continue to monitor.
[2016-11-05] MEDS ORDERED: INSULIN DETEMIR 300 UNIT/3 ML CARTRIDGE SQ SCH (21:00)
[2016-11-05] MEDS: TRAZODONE 100 MG TABLET PO PRN (21:02)
--- NOTE | 2016-11-05 21:02 | NUR ---
RN note PRN Trazodone Pt c/o inability to sleep. Administered Trazodone 100 mg PO as ordered. No SOB noted. Will continue to monitor.
--- NOTE | 2016-11-05 22:05 | NUR ---
RN note reassess Pt asleep on bed, no facial grimacing nor SOB noted. Trazodone rendered effective. Will continue to monitor pt.
--- NOTE | 2016-11-06 00:05 | NUR ---
RN note Vital Signs Refusal Pt refused Vital Signs check and CIWA assessment despite explanation of risks and benefits. No SOB noted. RR=16. Will continue to monitor.
--- NOTE | 2016-11-06 07:15 | NUR ---
Start of Shift Report from the night nurse: Pt is a 51 y/o male here for Etoh dependence r/t Vodka 1L/d, Benzo r/t Xanax 1g/d, Methamphetamine 5g/d smoked; 5 day Ativan taper ordered and completed yesterday. Pt is a full code, ADA/CCHO diet, NKA, fall and seizure precautions ordered. HHx: DM, pancreatitis, Anxiety and depression, multiple relapses. Orders for the pt to be discharged today and night nurse endorsed to me to f/u with UDS results. Last BG 192. V/S stable. Skin is intact. Last CIWA 0. Pt is asleep in room. Will cont. to monitor the pt.
--- NOTE | 2016-11-06 07:30 | NUR ---
End of Shift Pt is a 51-year old, male, admitted for ETOH dependence. Pt has a PMHx of DM II, Pancreatitis, Anxiety and Depression. Pt has completed a 5 day ativan taper without any averse side. Pt is on a consistent carb diet. Pt noted to be no-compliant with diet orders. Provided education, needs further reinforcement. Pt is AAOx4, is Full Code and with NKA. No SOB noted, not in respi distress. No apparent anxiety observed nor reported. Pt is ambulatory with steady gait and with no skin issues. Fall, universal, seizure and safety prec in place. Call light within reach. Kept pt warm, dry and comfortable. Last CIWA=0, slept for 7 hours. For discharge today and patient is aware. Endorsed to AM shift nurse for continuity of care.
[2016-11-06 08:00] VITALS: BP 107/77
[2016-11-06 08:09] LABS: *AMPHETAMINE, URINE NEGATIVE (NEGATIVE); *BARBITURATE, URINE NEGATIVE (NEGATIVE); *CANNABINOID, URINE NEGATIVE (NEGATIVE); *COCCAINE, URINE NEGATIVE (NEGATIVE); *OPIATE, URINE NEGATIVE (NEGATIVE); *PHENCYCLIDINE SCREEN,URINE NEGATIVE (NEGATIVE)
[2016-11-06] MEDS: BLOOD SUGAR DIAGNOSTIC 1 EACH STRIP VI SCH (08:22)
[2016-11-06] MEDS: INSULIN REGULAR, HUMAN 300 UNIT/3 ML VIAL SQ PRN (08:25)
[2016-11-06] MEDS: CITALOPRAM 20 MG TABLET PO SCH (08:26)
[2016-11-06] MEDS: THIAMINE HCL 100 MG TABLET PO SCH (08:26)
[2016-11-06] MEDS: FOLIC ACID 1 MG TABLET PO SCH (08:27)
[2016-11-06] MEDS: MULTIVITAMINS,THERAPEUTIC TABLET PO SCH (08:27)
[2016-11-06] MEDS: METFORMIN HCL 500 MG TABLET PO SCH (08:27)
[2016-11-06] MEDS: GABAPENTIN 300 MG CAPSULE PO SCH (08:27)
--- NOTE | 2016-11-06 12:18 | NUR ---
Discharge Pt is A&Ox 4, ambulatory independently. Features symmetrical, PERRLA 3mm, no GARCIA, N/V or dizziness present. V/S and BG are stable with last insulin given as ordered with breakfast and no lunch intake given so no insulin given. No SOB present. Skin is intact. No w/d s/sx present. Pt is given belonging, home medications, prescriptions, and d/c summary packet, chaperoned to [employer] [facility] [employer] transportation and d/c'ed to [facility].
[2016-11-07 00:13] LABS: *AMPHETAMINE Positive (.); *METHAMPHETAMINE Positive (.)
== END 2016-11-06 12:18 | disposition home or self-care (01) | DRG 895 ==
LOC: SRC 18:53
PROVIDERS: ADMIT Internal Medicine; ATTEND Internal Medicine
PROC: HZ2ZZZZ Detoxification Services for Substance Abuse Treatment (ICD-10-PCS; principal; 2016-10-30)
PROC: HZ41ZZZ Group Counseling for Substance Abuse Treatment, Behavioral (ICD-10-PCS; 2016-11-02)
PROC: HZ31ZZZ Individual Counseling for Substance Abuse Treatment, Behavioral (ICD-10-PCS; 2016-11-02)
DX: F10.230 Alcohol dependence with withdrawal, uncomplicated (principal); F33.1 Major depressive disorder, recurrent, moderate; K70.0 Alcoholic fatty liver; F15.23 Other stimulant dependence with withdrawal; Y90.9 Presence of alcohol in blood, level not specified; Z59.0 Homelessness; Z91.19 Patient's noncompliance with other medical treatment and regimen; E11.40 Type 2 diabetes mellitus with diabetic neuropathy, unspecified; Z91.11 Patient's noncompliance with dietary regimen; F17.210 Nicotine dependence, cigarettes, uncomplicated; F12.90 Cannabis use, unspecified, uncomplicated; Z79.899 Other long term (current) drug therapy; D63.8 Anemia in other chronic diseases classified elsewhere; Z86.69 Personal history of other diseases of the nervous system and sense organs
CPT/HCPCS: 36415; 70030-TC; 76700; 80307; 80324; 83690; 83735; 84443; 85025; 86580; 86705; 87340; 87806; A4663; G6040-TC; J1815

== ENCOUNTER 2016-12-17 23:19 | Emergency (ER) | payer BC, OTHER ==
[~2016-12-17 23:19] MED LIST: ACET-73 PO; CITA20TA11 PO; Gabapentin PO; HYDR-3895 PO; Metformin Hcl PO; NEOM14.216 TP; Trazodone Hcl PO
--- NOTE | 2016-12-18 00:02 | NUR ---
1st call, no answer, no one in waiting room...
--- NOTE | 2016-12-18 00:23 | NUR ---
2nd call, no answer, no show, bags still in ER... [facility] contacted, states they have not been contacted by pt... as pt was to be admitted into rehab....
== END 2016-12-18 00:52 | disposition left against medical advice (07) ==
LOC: ER 23:22
DX: Z53.21 Procedure and treatment not carried out due to patient leaving prior to being seen by health care provider (principal)

== ENCOUNTER 2017-01-20 00:01 | Emergency (ER) | payer BC ==
[~2017-01-20] VITALS: Ht 177.8 cm; Wt 74.8 kg
[2017-01-20] MEDS ORDERED: QUET100T PO (00:29)
[2017-01-20] MEDS ORDERED: GABA600T2 PO (00:29)
--- NOTE | 2017-01-20 01:00 | NUR ---
Pt ambulated to room with steady gait. Pt c/o right wrist pain. Sts his hand "locked up" and was unable to open his hand. Hand now "unlocked" pt able to move all his fingers. Pt sts his fingers are numb (middle, ring and little fingers). Pt also c/o swelling and pain to bilat ankles. Trace swelling noted. No obvious deformities. Pos CMS. Pt also c/o chronic low back pain. In addition to physical complaints pt requesting detox. Sts he was at a sober living then drank alcohol and used meth for two days and now wants detox and inpatient treatment. Pt resting in position of comfort for self. Awaiting further eval.
--- NOTE | 2017-01-20 02:30 | NUR ---
Pt walking around in room. Conts to c/o pain. MD aware, awaiting further orders.
--- NOTE | 2017-01-20 03:53 | NUR ---
Pt ambulated outside to have a cigarette with steady gait, would not stay in room
--- NOTE | 2017-01-20 04:00 | NUR ---
Pt returned to room. Xrays obtained.
[2017-01-20 04:32] LABS: BASOPHILS # (AUTO) 0.1 K/uL (0.0-8.0); BASOPHILS % (AUTO) 0.6 % (0.0-2.0); EOSINOPHILS # (AUTO) 0.1 K/uL (0.0-0.7); EOSINOPHILS % (AUTO) 0.8 % (0.0-7.0); HEMOGLOBIN 13.3 G/DL (14.0-18.0); LYMPHOCYTES # (AUTO) 2.9 K/UL (0.8-4.8); LYMPHOCYTES % (AUTO) 24.2 % (20.5-51.5); MEAN CORPUSCULAR HEMOGLOBIN 29.7 UUG (27.0-31.0); MEAN CORPUSCULAR HGB CONC 33 g/dL (32.0-37.0); MEAN CORPUSCULAR VOLUME 89.1 FL (82.0-92.0); MONOCYTES # (AUTO) 1.3 K/UL (0.1-1.30); MONOCYTES % (AUTO) 11.3 % (0.0-11.0); NEUTROPHILS # (AUTO) 7.4 K/UL (1.8-8.9); NEUTROPHILS % (AUTO) 63.1 % (38.5-71.5); PLATELET COUNT (AUTO) 230 K/UL (150-450); RED BLOOD CELL COUNT(AUTO) 4.49 MIL/UL (4.7-6.1); WHITE BLOOD COUNT (AUTO) 11.8 K/UL (4.0-11.2)
--- NOTE | 2017-01-20 04:35 | NUR ---
Pt asking for something to eat. Pt given crackers and apple sauce. Pt requesting medication for anxiety and pain. MD notified, awaiting further orders. Pt resting in position of comfort for self
[2017-01-20 04:36] LABS: BILIRUBIN,DIRECT 0.3 mg/dL (0.0-0.2); BILIRUBIN,TOTAL 1.7 mg/dL (0.2-1.0); CREATININE 0.8 mg/dL (0.6-1.3); POTASSIUM 3.1 mmol/L (3.5-5.1); TOTAL PROTEIN, SERUM 8.1 g/dL (6.4-8.2)
[2017-01-20] MEDS ORDERED: diphenhydrAMINE 50 MG CAPSULE PO ONE (05:15)
[2017-01-20] MEDS ORDERED: IBUPROFEN 800 MG TABLET PO ONE (05:15)
--- NOTE | 2017-01-20 05:58 | NUR ---
Pt stable for discharge per MD. Pt given ACI. Pt verbalized understanding of dc instructions. Pt ambulated out of er with steady gait.
[2017-01-20 05:59] VITALS: BP 145/65
[2017-01-20] MEDS ORDERED: IBUPROFEN 800 MG TABLET ONE (06:02)
[2017-01-20] MEDS ORDERED: diphenhydrAMINE 50 MG CAPSULE ONE (06:02)
[2017-01-21] MEDS ORDERED: ACET-2154 PO (18:29)
[2017-01-21] MEDS ORDERED: NITR0.4T SL (18:29)
[2017-01-21] MEDS ORDERED: DIPH25TA62 PO (18:29)
[2017-01-21] MEDS ORDERED: IBUP100O18 PO (18:29)
== END 2017-01-20 06:01 | disposition home or self-care (01) ==
LOC: ER 00:05
DX: M25.572 Pain in left ankle and joints of left foot (principal); M25.571 Pain in right ankle and joints of right foot; R20.0 Anesthesia of skin; G89.29 Other chronic pain; M54.9 Dorsalgia, unspecified; F41.9 Anxiety disorder, unspecified; F10.20 Alcohol dependence, uncomplicated; F17.200 Nicotine dependence, unspecified, uncomplicated; F19.10 Other psychoactive substance abuse, uncomplicated; E11.9 Type 2 diabetes mellitus without complications
CPT/HCPCS: 36415; 70030-TC; 73110; 73610; 83735; 85025; A4663; Q0163

== ENCOUNTER 2017-01-20 07:31 | Inpatient (IN) | payer BC, OTHER ==
[~2017-01-20] VITALS: Ht 180.3 cm; Wt 77.1 kg
[~2017-01-20 07:31] MED LIST changes: -ACET-73 PO; +GABA600T2 PO; -NEOM14.216 TP; +QUET100T PO; -Trazodone Hcl PO
[2017-01-21] MEDS ORDERED: LORAZEPAM 1 MG TABLET PO PRN (12:45)
[2017-01-21] MEDS ORDERED: MIRALAX 17 GM POWD.PACK PO PRN (12:45)
[2017-01-21] MEDS ORDERED: LORAZEPAM 2 MG/1 ML VIAL IM PRN (12:45)
[2017-01-21] MEDS ORDERED: ACETAMINOPHEN 325 MG TABLET PO PRN (12:45)
[2017-01-21] MEDS ORDERED: MAGNESIUM HYDROXIDE 30 ML LIQUID UDC PO PRN (12:45)
[2017-01-21] MEDS ORDERED: LOPERAMIDE HCL 2 MG CAPSULE PO PRN ×2 (12:45)
[2017-01-21] MEDS ORDERED: DICYCLOMINE HCL 20 MG TABLET PO PRN (12:45)
[2017-01-21] MEDS ORDERED: CLONIDINE HCL 0.1 MG TABLET PO PRN (12:45)
[2017-01-21] MEDS ORDERED: ONDANSETRON ODT 4 MG TAB.RAPDIS SL PRN (12:45)
[2017-01-21] MEDS ORDERED: MAG HYDROX/AL HYDROX/SIMETH 30 ML LIQUID UDC PO PRN (12:45)
[2017-01-21] MEDS ORDERED: THIAMINE HCL 200 MG/2 ML VIAL IM ONE (12:45)
[2017-01-21] MEDS ORDERED: DEXTROSE 50% 50 ML DISP.SYRIN IV PRN (12:45)
[2017-01-21] MEDS ORDERED: ONDANSETRON 4 MG/2 ML VIAL IM PRN (12:45)
[2017-01-21] MEDS ORDERED: diphenhydrAMINE 50 MG CAPSULE PO PRN (12:45)
[2017-01-21 13:00] VITALS: BP 99/65
--- NOTE | 2017-01-21 13:00 | NUR ---
Intake Assessment; Patient is a 51 year old male, presented to [facility] to detoxify from ETOH and Methamphetamine. Patient appears moderately intoxicated, able to communicate, patient is anxious, agitated but easily redirected. Patient was recently at [facility] and was discharged on 11/06/16. Patient denies any allergies. Patient reports history of seizures d/t withdrawals, last episode was 8 months ago. Patient's admitting vital signs are as follows; BP 99/65, HR 103, Temperature 98.0, respirations 18, SPO2 of 98%, weighs 170lbs and height of 5'11, patient reports generalized body aches. Patient was in [facility] ER yesterday for swollen ankle and wrist pain, XRAY was done and shows no s/s of fracture. Safety measures secured. Will continue with further assessment when patient is up on the unit.
--- NOTE | 2017-01-21 13:15 | NUR ---
communication Verified with Dr Green that accu check is to be completed at the scheduled time at 1630.
--- NOTE | 2017-01-21 13:30 | NUR ---
Admission note; Patient is a 51 year old male, presented to [facility] to detoxify from ETOH and Methamphetamine. Patient appears moderately intoxicated, able to communicate, patient is anxious, agitated but easily redirected. Patient was recently at [facility] and was discharged on 11/06/16. Patient denies any allergies. Patient reports history of seizures d/t withdrawals, last episode was 8 months ago. Patient's admitting vital signs are as follows; BP 99/65, HR 103, Temperature 98.0, respirations 18, SPO2 of 98%, weighs 170lbs and height of 5'11, patient reports generalized body aches. Patient was in [facility] ER yesterday for swollen ankle and wrist pain, XRAY was done and shows no s/s of fracture per patient's report. Educated patient regarding unit protocols and policies, verbalized understanding. Patient is admitted under the care of Dr. Green to room 318. Urine provided by patient for urine drug screen. Discussed substance use history. Patient reported Drinking ETOH since he was 15 years old and progressed to daily use when he was 33 years old. Patient reported drinking 1 liter of vodka on a daily basis last taken 01/21/17 morning prior to admission. Patient also started using methamphetamine last year and progressed to a daily use , patient smokes "8th ball" /day last used 01/21/17 morning prior to admission with unknown amount. Patient also reported smoking Marijuana since he was 14 year, at this rate patient smokes 1 gram/ day last used 01/19/17 with unknown amount. Medical and psych history discussed. Patient reported history of diabetes mellitus type 2, patient reported that he only take Metformin medication at home. Patient also reported history of anxiety, depression and pancreatitis and chronic back pain d/t accident in July 2016. Patient does not have a primary care physician or psychiatrist. Patient's CIWA score is 4. Skin check done, swelling on ankle noted, old scab noted on patient's heel, site is intact. Patient oriented to unit by REEL SYSTEM OPERATOR. Safety measures in place. Will continue to monitor patient. Detailed report given to MD. Will continue to monitor patient.
[2017-01-21] MEDS: GABAPENTIN 300 MG CAPSULE PO SCH ×2 (15:09→20:48)
[2017-01-21 15:39] LABS: *AMPHETAMINE, URINE POSITIVE (NEGATIVE); *BARBITURATE, URINE NEGATIVE (NEGATIVE); *CANNABINOID, URINE POSITIVE (NEGATIVE); *COCCAINE, URINE NEGATIVE (NEGATIVE); *OPIATE, URINE NEGATIVE (NEGATIVE); *PHENCYCLIDINE SCREEN,URINE NEGATIVE (NEGATIVE)
[2017-01-21] MEDS ORDERED: QUETIAPINE FUMARATE 25 MG TABLET PO STA (15:53)
--- NOTE | 2017-01-21 15:54 | NUR ---
Psychiatrist communication; Psychiatrist on unit. Patient was seen and evaluated by MD. MD ordered one time dose of Seroquel 100mg PO stat. Order given as per MD. Will continue to monitor patient.
[2017-01-21 16:00] VITALS: BP 108/68
[2017-01-21 16:29] LABS: BASOPHILS % (AUTO) 0.3 % (0.0-2.0); EOSINOPHILS # (AUTO) 0.3 K/uL (0.0-0.7); EOSINOPHILS % (AUTO) 2.3 % (0.0-7.0); HEMATOCRIT 39.7 % (40-50); HEMOGLOBIN 13.5 G/DL (14.0-18.0); LYMPHOCYTES # (AUTO) 2.1 K/UL (0.8-4.8); LYMPHOCYTES % (AUTO) 18.1 % (20.5-51.5); MEAN CORPUSCULAR HEMOGLOBIN 30.7 UUG (27.0-31.0); MEAN CORPUSCULAR HGB CONC 34 g/dL (32.0-37.0); MEAN CORPUSCULAR VOLUME 90.2 FL (82.0-92.0); MONOCYTES # (AUTO) 1.3 K/UL (0.1-1.30); NEUTROPHILS # (AUTO) 8.1 K/UL (1.8-8.9); NEUTROPHILS % (AUTO) 68.3 % (38.5-71.5); PLATELET COUNT (AUTO) 236 K/UL (150-450); WHITE BLOOD COUNT (AUTO) 11.8 K/UL (4.0-11.2)
[2017-01-21 16:38] LABS: ALANINE AMINOTRANSFERASE 53 U/L (16-63); ALKALINE PHOSPHATASE 88 U/L (50-136); AMYLASE 33 U/L (25-115); ASPARTATE AMINOTRANSFERASE 72 U/L (15-37); BILIRUBIN,TOTAL 2.1 mg/dL (0.2-1.0); CARBON DIOXIDE 28 mmol/L (21-32); CHLORIDE 100 mmol/L (98-107); CREATININE 0.9 mg/dL (0.6-1.3); GLUCOSE 117 mg/dL (74-106); LIPASE 55 U/L (73-393); POTASSIUM 3.7 mmol/L (3.5-5.1); TOTAL PROTEIN, SERUM 7.9 g/dL (6.4-8.2); UREA NITROGEN, BLOOD 17 mg/dL (7-18)
[2017-01-21] MEDS: BLOOD SUGAR DIAGNOSTIC 1 EACH STRIP VI SCH ×2 (17:22→21:00)
[2017-01-21] MEDS: INSULIN REGULAR, HUMAN 300 UNIT/3 ML VIAL SQ PRN (17:26)
--- NOTE | 2017-01-21 17:26 | NUR ---
Insulin dose; Accu-check done AC, obtained blood sugar of 162mg/dl. Humulin R 3 units given per mild sliding scale order. Will continue to monitor patient for s/s of hypoglycemia.
[2017-01-21 17:30] LABS: ETHANOL < 3 MG/DL (0-0)
[2017-01-21] MEDS: METFORMIN HCL 500 MG TABLET PO SCH (18:04)
[2017-01-21] MEDS ORDERED: NITR0.4T SL (18:29)
[2017-01-21] MEDS ORDERED: IBUP100O18 PO (18:29)
[2017-01-21] MEDS ORDERED: DIPH25TA62 PO (18:29)
[2017-01-21] MEDS ORDERED: ACET-2154 PO (18:29)
--- NOTE | 2017-01-21 18:40 | NUR ---
End of shift note; Patient is AOX4. Patient remained compliant with treatment plan and medication regime. Patient is currently on 1:1 sitter for safety d/t unsteady gait. Patient is on fall and seizure precaution. Bed in lowest position, call light within reach. Patient to start 5 day Ativan taper tomorrow per MD order. All safety measures secured. Patient does not show any s/s of hypoglycemia/hyperglycemia. Met all needs.
--- NOTE | 2017-01-21 19:30 | NUR ---
START OF SHIFT Received 51 year old male patient admitted on 01/21/17 for ETOH, methamphetamine and Marijuana dependency. Pt is full code with NKA. He reports a PMHx of DM type II, anxiety and depression. He reports drinking ETOH 1 liter of vodka daily for 1 month. Last dose was bottle of wine on 01/21/17. Methamphetamine 8th ball daily for 1 month. Last dose was on 01/21/17. Marijuana 1 gram daily for 1 month. Last dose was 1 gram on 01/19/17. Pt placed on 5 day Ativan taper to start on 01/22/17. Per endorsement, pt is on 1:1 for safety. Pt is alert and oriented x4, breathing is even and unlabored. Safety measures in place. Will continue to monitor.
[2017-01-21 20:00] VITALS: BP 116/73
[2017-01-21] MEDS: HYDROXYZINE PAMOATE 25 MG CAPSULE PO PRN (20:48)
[2017-01-21] MEDS: LORAZEPAM 1 MG TABLET PO PRN (20:48)
--- NOTE | 2017-01-21 20:48 | NUR ---
PRN VISTARIL/ATIVAN Pt observed to be anxious/agitated, restless and unable to sit still. PRN Ativan 1 mg administered for CIWA:7 and PRN Vistaril administered for anxiety. Breathing even and unlabored, safety measures in place. Will monitor effectiveness of medications.
--- NOTE | 2017-01-21 20:50 | NUR ---
ACCJACOBY Pt's BS 128. No Insulin needed per sliding scale.
--- NOTE | 2017-01-21 21:00 | NUR ---
ACCU-CHECK REFUSAL Pt refused accu-check. Risks and benefits were explained x3, pt still refused. No complaints of dizziness or any s/s of hypo or hyperglycemia. Breathing is even and unlabored, respirations 16. Dr. Green made aware. Will continue to monitor. Addendum: 01/22/17 at 2154 by LIBERTAD CHRISTINA RN ERROR IN CHARTING. WRONG DATE/TIME
--- NOTE | 2017-01-21 21:58 | NUR ---
PRN VISTARIL/ATIVAN REASSESSMENT PRN medications effective. Pt lying in bed with eyes closed noted to be asleep. No facial grimacing noted. respirations 16, breathing is even and unlabored, safety measures in place. Will continue to monitor.
[2017-01-21] MEDS ORDERED: QUETIAPINE FUMARATE 100 MG TABLET ONE (22:18)
--- NOTE | 2017-01-22 | NUR ---
VITALS REFUSED/CIWA DEFERRED 0000 vitals refused. CIWA deferred d/t pt lying in bed with eyes closed noted to be asleep. Respirations 16, breathing is even and unlabored, safety measures in place. Will continue to monitor.
[2017-01-22] MEDS: HYDROXYZINE PAMOATE 25 MG CAPSULE PO PRN (03:06)
[2017-01-22] MEDS: LORAZEPAM 1 MG TABLET PO PRN (03:07)
--- NOTE | 2017-01-22 03:07 | NUR ---
PRN ATIVAN/VISTARIL Pt complains of anxiety, restlessness and agitation. PRN Ativan and Vistaril administered as ordered. Breathing is even and unlabored, respirations 16, safety measures in place. Will continue to monitor.
--- NOTE | 2017-01-22 04:00 | NUR ---
VITALS REFUSE/ CIWA DEFERRED 0400 vitals refused by pt d/t pt wants to sleep. CIWA deferred d/t pt lying in bed with eyes closed noted to be sleeping. Respirations 16, breathing is even and unlabored, safety measures in place. Will continue to monitor.
--- NOTE | 2017-01-22 04:07 | NUR ---
PRN ATIVAN/VISTARIL REASSESSMENT PRN medications effective. Pt is resting comfortably in bed with eyes closed noted to be asleep. Respirations 16, breathing is even and unlabored. Safety measures in place. Will monitor.
--- NOTE | 2017-01-22 07:13 | NUR ---
END OF SHIFT Pt is a 51 year old male patient admitted on 01/21/17 for ETOH, methamphetamine and Marijuana dependency. Pt is full code with NKA. He reports a PMHx of DM type II, anxiety and depression. Pt is placed on 5 day Ativan taper to start today 01/22/17. He continues on 1:1 for safety. At 2048 he received PRN Ativan and Vistaril for CIWA:7. At 0307 He received PRN Ativan and Vistaril for CIWA: 6. He slept a total of 7hrs, Intake: 1950 mL, Void: x1, BM: x1, CIWA:7. Pt remains alert and oriented x4, breathing is even and unlabored. Safety measures in place. Endorsed to oncoming shift.
--- NOTE | 2017-01-22 07:35 | NUR ---
Start of Shift Pt is a 51 year old male with PMH of DM 2, anxiety and depression. Pt admitted 01/21/17 for ETOH, Methamphetamine and THC detox. NKDA and a constant carbohydrate diet with a sliding scale insulin order. Per nightclub manager nurse, pt was administered Ativan and Vistaril twice during the evening resulting in reduced anxiety and the ability to sleep 7 hours. Pt last CIWA of 6 recorded this am, with a BS of 128 recorded last evening. On assessment pt presents as A/O x4, flat affect with irritable and sarcastic mood. Able to make needs known. Bed locked in low position with call light in reach and all safety measures in place. Will continue to monitor, support and encourage according to plan of care.
--- NOTE | 2017-01-22 07:37 | NUR ---
Accu-Check: Tool Design Checker unable to scan pt's ID band at this time. BS was 140. Will continue to monitor, support and encourage according to plan of care.
--- NOTE | 2017-01-22 07:40 | NUR ---
Insulin Refusal: Carton Catcher measured BS at 140, after pt had begun eating his breakfast. Sliding scale protocol calls for 2 units of insulin. Carton Catcher informed pt of need to administer 2 units, pt refused, stating, " I was eating, don't worry about it."
[2017-01-22] MEDS: BLOOD SUGAR DIAGNOSTIC 1 EACH STRIP VI SCH ×4 (07:41→21:00)
[2017-01-22 08:21] VITALS: BP 92/46
[2017-01-22] MEDS ORDERED: 5 DAY TAPER OF LORAZEPAM -SERENITY PROTOCOL PO PRN ×2 (08:30→09:00)
[2017-01-22] MEDS ORDERED: TUBERCULIN,PURIF.PROT.DERIV. 5 TU/0.1 ML TEST ID ONE (09:00)
[2017-01-22] MEDS: THIAMINE HCL 100 MG TABLET PO SCH (09:07)
[2017-01-22] MEDS: FOLIC ACID 1 MG TABLET PO SCH (09:07)
[2017-01-22] MEDS: CITALOPRAM 20 MG TABLET PO SCH (09:07)
[2017-01-22] MEDS: LORAZEPAM 1 MG TABLET PO SCH ×4 (09:07→20:43)
[2017-01-22] MEDS: MULTIVITAMINS,THERAPEUTIC TABLET PO SCH (09:07)
[2017-01-22] MEDS: METFORMIN HCL 500 MG TABLET PO SCH ×2 (09:07→17:20)
[2017-01-22] MEDS: GABAPENTIN 300 MG CAPSULE PO SCH ×3 (09:08→20:44)
[2017-01-22] MEDS: DOCUSATE SODIUM 250 MG CAPSULE PO SCH (09:08)
--- NOTE | 2017-01-22 09:17 | NUR ---
PPD Refusal Pt refuses to have the PPD administered and requests to have a Chest Xray. Will inform MD. Will continue to monitor, support and encourage according to plan of care.
--- NOTE | 2017-01-22 11:47 | NUR ---
BS 1130 Pt BS 97 with no coverage required. Will continue to monitor, support and encourage according to plan of care.
[2017-01-22 13:14] VITALS: BP 114/70
--- NOTE | 2017-01-22 14:16 | NUR ---
PRN Medication Pt complain of pain 10/10 in lower legs, bi-lateral and feet. Non-pharmcological interventions tried x3 with no relief for patient. Administered Tylenol PO according to MD order. Will continue to monitor, support and encourage according to plan of care.
--- NOTE | 2017-01-22 15:16 | NUR ---
PRN Re-assessment Pt resting with eyes closed in his bed. With no complaints made. Will continue to monitor, support and encourage according to plan of care.
--- NOTE | 2017-01-22 16:50 | NUR ---
BS 1630 Patient's blood sugar at 1645 was 155, requiring insulin of 2 units per MD order. Pt refuses to be administered the insulin and states, " it's not like I am in the 200 or 300's." Predatory Hunter made Dr. Green aware, whom stated, " just document his refusal." Will continue to monitor, support and encourage according to plan of care.
[2017-01-22 16:53] VITALS: BP 106/67
[2017-01-22] MEDS: QUETIAPINE FUMARATE 25 MG TABLET PO SCH (17:20)
--- NOTE | 2017-01-22 17:36 | NUR ---
Discontinue of 1:1 Pt able to ambulate with steady gait with the assistance of cane, VS all stable and WNL. Pt no longer at high risk for fall and is able to ambulate without assistance. Construction Job Cost Estimator discussed with rn clinical review and it was decided to stop staffing pt with a 1:1. Staff and pt aware. Pt agrees to use cane when ambulating and to use wheelchair to get access to patio. Will continue to monitor, support and encourage according to plan of care.
--- NOTE | 2017-01-22 19:14 | NUR ---
End of Shift Pt is a 51 year old male with PMH of DM 2, anxiety and depression. Pt admitted 01/21/17 for ETOH, Methamphetamine and THC detox. NKDA and a constant carbohydrate diet with a sliding scale insulin order. Pt refused 2u of insulin after a BS of 140 before breakfast, MD aware. Pt refused 2 unit administration of insulin after 1630 BS of 155, MD aware. Pt administered Tylenol at 1415 with limited effectiveness and pt still complaining of pain. Pt last CIWA of 5 recorded at 1600, with a BS of 140, 97, and 155 recorded at breakfast, lunch and dinner. Pt also refused PPD screening and was ordered to have a chest Xray for TB clearance. Pt started on 5 day Ativan taper and is tolerating well. Bed locked in low position with call light in reach and all safety measures in place. Body Rolling Machine Tender handed off all previous information to oncoming NOC nurse with no further comments, questions or concerns voiced.
--- NOTE | 2017-01-22 19:15 | NUR ---
START OF SHIFT Received 51 year old male patient admitted on 01/21/17 for ETOH, methamphetamine and Marijuana dependency. Pt is full code with NKA. He reports a PMHx of DM type II, anxiety and depression. He reports drinking ETOH 1 liter of vodka daily for 1 month. Last dose was bottle of wine on 01/21/17. Methamphetamine 8th ball daily for 1 month. Last dose was on 01/21/17. Marijuana 1 gram daily for 1 month. Last dose was 1 gram on 01/19/17. Pt continues on Ativan taper started today 01/22/17 and tolerating well. Per endorsement, pt's 1:1 is DC. Pt also refused Insulin in AM and at dinner time. was made aware. He received PRN Tylenol at 1415. Pt is alert and oriented x4, breathing is even and unlabored. Safety measures in place. Will continue to monitor.
[2017-01-22 20:00] VITALS: BP 110/65
[2017-01-22] MEDS: QUETIAPINE FUMARATE 100 MG TABLET PO SCH (20:43)
[2017-01-22] MEDS: LACTOBACILLUS RHAMNOSUS GG 1 EACH CAPSULE PO SCH (20:43)
[2017-01-22] MEDS: SULFAMETH/TRIMETH 800/160 MG TABLET PO SCH (20:43)
[2017-01-22] MEDS: ACETAMINOPHEN ES 500 MG TABLET PO SCH (20:44)
--- NOTE | 2017-01-22 21:00 | NUR ---
ACCUCHECK REFUSAL Pt refused accucheck. Risks and benefits were explained x3, pt still refused. No complaints of dizziness or any s/s of hypo or hyperglycemia. Breathing is even and unlabored, respirations 16. Dr. Green made aware. Will continue to monitor.
--- NOTE | 2017-01-23 | NUR ---
VITALS REFUSED/CIWA DEFERRED 0000 vitals refused by pt. CIWA deferred d/t pt lying in bed with eyes closed noted to be asleep. Respirations 16, breathing is even and unlabored, safety measures in place. Will continue to monitor.
--- NOTE | 2017-01-23 04:00 | NUR ---
VITALS REFUSED/COWS DEFERRED 0400 vitals refused. COWS deferred d/t pt lying in bed with eyes closed noted to be asleep. Respirations 16, breathing is even and unlabored. Safety measures in place. Will monitor.
--- NOTE | 2017-01-23 07:04 | NUR ---
END OF SHIFT Pt is a 51 year old male patient admitted on 01/21/17 for ETOH, methamphetamine and Marijuana dependency. Pt is full code with NKA. He reports a PMHx of DM type II, anxiety and depression. Pt continues on Ativan taper started on 01/22/17 and tolerating well. He refused his Accucheck at 2100. Risks and benefits were explained x3, pt still refused. Dr. Green made aware. He did not receive or request PRN medications. He slept a total of 6 hrs, Intake: 1200mL, Void: x1, BM: x2. CIWA:5. Pt remains alert and oriented x4, breathing is even and unlabored. Safety measures in place. Endorsed to oncoming shift.
[2017-01-23 08:00] VITALS: BP 111/74
--- NOTE | 2017-01-23 08:00 | NUR ---
START OF SHIFT Pt 51 y/o male admitted for etoh withdrawals. Pt received in room on bed with eyes closed resting, but easily arousable to name. Pt alert and oriented to name, place, and time. Perrla. Skin warm and slightly moist to touch. respirations even and unlabored. It was reported that pt slept for 6 hours last night. Bed on lowest position with side rails x 2 up for safety. Call light within reach. No distress noted at this time.
[2017-01-23] MEDS: BLOOD SUGAR DIAGNOSTIC 1 EACH STRIP VI SCH ×4 (08:19→21:25)
[2017-01-23] MEDS: DOCUSATE SODIUM 250 MG CAPSULE PO SCH (09:00)
[2017-01-23] MEDS: THIAMINE HCL 100 MG TABLET PO SCH (09:00)
[2017-01-23] MEDS: IBUPROFEN 600 MG TABLET PO PRN (09:00)
[2017-01-23] MEDS: LORAZEPAM 1 MG TABLET PO SCH ×3 (09:00→21:06)
[2017-01-23] MEDS: LACTOBACILLUS RHAMNOSUS GG 1 EACH CAPSULE PO SCH ×2 (09:00→21:06)
[2017-01-23] MEDS: ACETAMINOPHEN ES 500 MG TABLET PO SCH ×3 (09:00→21:07)
[2017-01-23] MEDS: FOLIC ACID 1 MG TABLET PO SCH (09:00)
[2017-01-23] MEDS: GABAPENTIN 300 MG CAPSULE PO SCH ×3 (09:00→21:06)
--- NOTE | 2017-01-23 09:00 | NUR ---
PRN Pt states has generalized body pain 10/10 aching. Motrin po prn per MD order given and tolerated well.
[2017-01-23] MEDS: MULTIVITAMINS,THERAPEUTIC TABLET PO SCH (09:01)
[2017-01-23] MEDS: SULFAMETH/TRIMETH 800/160 MG TABLET PO SCH ×2 (09:01→21:06)
[2017-01-23] MEDS: CITALOPRAM 20 MG TABLET PO SCH (09:01)
[2017-01-23] MEDS: QUETIAPINE FUMARATE 25 MG TABLET PO SCH ×2 (09:01→17:58)
[2017-01-23] MEDS: METFORMIN HCL 500 MG TABLET PO SCH ×2 (09:04→17:58)
[2017-01-23] MEDS: INSULIN REGULAR, HUMAN 300 UNIT/3 ML VIAL SQ PRN ×2 (09:09→18:04)
--- NOTE | 2017-01-23 10:00 | NUR ---
MERY DIEZ Pt observed walking around the hallways with single point cane.
[2017-01-23 12:00] VITALS: BP 120/64
[2017-01-23 14:11] LABS: HEPATITIS B SURFACE AG Negative (Negative)
[2017-01-23] MEDS ORDERED: NITROGLYCERIN 0.4 MG/TAB BOTTLE SL PRN (15:00)
[2017-01-23 16:00] VITALS: BP 112/71
--- NOTE | 2017-01-23 18:00 | NUR ---
PRN Pt with c/o pain 10/10 generalized body aches. Went to pt room and pt observed on bed with eyes closed resting, but easily arousable to name, but pt closes eyes soon aftter opening eyes. No distress noted at this time.
--- NOTE | 2017-01-23 18:29 | NUR ---
END OF SHIFT Pt 51 y/o male admitted for etoh withdrawals. Pt alert and oriented to name, place, and time. Perrla. Skin warm and slightly moist to touch. respirations even and unlabored. Pt observed with episodes of anxiety today. Pt observed isolative to room with minimal peer interaction. Pt did not attend group activity. Pt medication compliant and tolerated well. No ASE noted. Pt was seen by Dr. Green today. Bed on lowest position with side rails x 2 up for safety. Call light within reach. No distress noted at this time.
--- NOTE | 2017-01-23 18:59 | NUR ---
START OF SHIFT NOTE: Patient endorsed by day shift nurse in stable condition. Report received. Patient is a 51 year old male admitted to [facility] on 01/21/17 for ETOH and Methamphetamine Dependence, continue 5Day Ativan Taper since 01/22/17. Patient tolerated well . NKA, Regular Diet, Full Code, Fall and Seizures Precautions. Patent denies History of Seizure. PMH: Anxiety, Depression, DM Type 2 Sliding Scale, and Substance Abuse. Upon endorsement, patient is A&Ox4 , speech is soft and clear. COWS 7. Patient presented with following withdrawal s/s: anxiety, agitation, nervousness, sweats, yawning, tremors that can be felt, and restlessness. Patient denies SI/HI. VS stable through the day. Patient remains compliant with treatment plan, medications, and diet regimen. Respirations are even and unlabored. Patient denies chest pain and SOB. Lungs Sounds are clear bilaterally. Bowel Sounds are active in all 4 quadrants. Last bowel Movement's on "01/23/17 at 1500". Skin is intake, warm and dry to touch. Encouraged to attend groups activities. Encouraged to fluids intake, as tolerated. All needs met. Safety measures in the place by hospital policy: bed in the lowest position, and locked, bed rails up x2. Will continue to monitor closely.
[2017-01-23 20:00] VITALS: BP 91/51
[2017-01-23] MEDS: QUETIAPINE FUMARATE 100 MG TABLET PO SCH (21:06)
--- NOTE | 2017-01-24 | NUR ---
VS REFUSED AND CIWA/COWS DEFERRED Patient refused to be woken up for 00:00 RR: 15. Respirations even and unlabored. VS, CIWA/COWS deferred d/t patient sleeping to assess while patient is awake. Safety measures on place by hospital policy: Call light within reach; Bed in lowest position and locked; padded side rails up x2. Will continue to monitor closely.
--- NOTE | 2017-01-24 04:00 | NUR ---
VS REFUSED AND CIWA/COWS DEFERRED Patient refused to be woken up for 04:00 RR: 14. Respirations even and unlabored. VS, CIWA/COWS deferred d/t patient sleeping to assess while patient is awake. Safety measures on place by hospital policy: Call light within reach; Bed in lowest position and locked; padded side rails up x2. Will continue to monitor closely.
--- NOTE | 2017-01-24 07:24 | NUR ---
END OF SHIFT NOTE: Patient endorsed to day shift nurse. Report given. Patient is a 51 year old male admitted to [facility] on 01/21/17 for ETOH and Methamphetamine Dependence, continue 5 Day Ativan Taper since 01/22/17. Patient tolerated well . No ASE . NKA, Regular Diet, Full Code, Fall and Seizures Precautions. Patent denies History of Seizure. PMH: Anxiety, Depression, DM Type 2 Sliding Scale, and Substance Abuse. Last COWS 4. Withdrawal S/S improved. Patient remains compliant with treatment plan, medications, and diet regimen. Patient denies SI/HI. Patient refused VS at 0000 and 0400. Respirations are even and unlabored. Patient denies chest pain and SOB. Skin is intake, warm and dry to touch. Encouraged to attend groups activities. Encouraged to fluids intake, as tolerated. NO PRN Medications administrated last shift superintendent caustic cresylate. All needs met. Safety measures in the place by hospital policy: bed in the lowest position, and locked, bed rails up x2. Will continue to monitor closely.
[2017-01-24] MEDS: BLOOD SUGAR DIAGNOSTIC 1 EACH STRIP VI SCH ×4 (07:35→21:00)
--- NOTE | 2017-01-24 07:40 | NUR ---
INSULIN Pt with QB=830mf/dL. Per sliding scale pt is to receive humulin R 2 units sq, but pt refused.
[2017-01-24 08:00] VITALS: BP 119/75
--- NOTE | 2017-01-24 08:00 | NUR ---
START OF SHIFT Pt 51 y/o male admitted for etoh withdrawals. Pt received in room on bed with eyes closed resting, but easily arousable to name. Pt alert and oriented to name, place, and time. Perrla. Skin warm and slightly moist to touch. respirations even and unlabored. It was reported that pt slept for 8 hours last night. Bed on lowest position with side rails x 2 up for safety. Call light within reach. No distress noted at this time.
[2017-01-24] MEDS: CITALOPRAM 20 MG TABLET PO SCH (08:21)
[2017-01-24] MEDS: FOLIC ACID 1 MG TABLET PO SCH (08:21)
[2017-01-24] MEDS: MULTIVITAMINS,THERAPEUTIC TABLET PO SCH (08:21)
[2017-01-24] MEDS: LACTOBACILLUS RHAMNOSUS GG 1 EACH CAPSULE PO SCH ×2 (08:21→21:14)
[2017-01-24] MEDS: METFORMIN HCL 500 MG TABLET PO SCH ×2 (08:21→18:31)
[2017-01-24] MEDS: SULFAMETH/TRIMETH 800/160 MG TABLET PO SCH ×2 (08:21→21:14)
[2017-01-24] MEDS: THIAMINE HCL 100 MG TABLET PO SCH (08:21)
[2017-01-24] MEDS: GABAPENTIN 300 MG CAPSULE PO SCH ×3 (08:21→21:13)
[2017-01-24] MEDS: QUETIAPINE FUMARATE 25 MG TABLET PO SCH ×2 (08:21→18:31)
[2017-01-24] MEDS: ACETAMINOPHEN ES 500 MG TABLET PO SCH ×3 (08:21→21:13)
[2017-01-24] MEDS: LORAZEPAM 1 MG TABLET PO SCH ×4 (08:21→21:13)
[2017-01-24] MEDS: KETOROLAC TROMETHAMINE 30 MG INJ IM PRN (08:22)
--- NOTE | 2017-01-24 08:22 | NUR ---
PRN Pt states has generalized body pain 7/10 aching. Toradol IM prn per MD order given and tolerated well.
[2017-01-24] MEDS: DOCUSATE SODIUM 250 MG CAPSULE PO SCH (09:00)
--- NOTE | 2017-01-24 09:22 | NUR ---
PRN EVAL Pt states pain is 3/10.
--- NOTE | 2017-01-24 11:30 | NUR ---
INSULIN Pt with TX=538fm/dL. Pt is to receive humilin R 3 units per sliding scale, but pt refused.
[2017-01-24 12:00] VITALS: BP 117/66
[2017-01-24 16:00] VITALS: BP 117/74
--- NOTE | 2017-01-24 16:30 | NUR ---
INSULIN Pt with BS 142 mg/dL. Pt is to receive humalin r 2 units sq per sliding scale, but pt is refusing.
--- NOTE | 2017-01-24 18:00 | NUR ---
NSG ENTRY Pt requesting to have medications after he eats dinner.
--- NOTE | 2017-01-24 18:23 | NUR ---
END OF SHIFT Pt 51 y/o male admitted for etoh withdrawals. Pt alert and oriented to name, place, and time. Perrla. Skin warm and slightly moist to touch. respirations even and unlabored. Pt observed with episodes of anxiety today. Pt observed isolative to room with minimal peer interaction. Pt did not attend group activity. Pt medication compliant and tolerated well. No ASE noted. Pt refused any insulin coverage today. Pt was seen by Dr. Green today. Bed on lowest position with side rails x 2 up for safety. Call light within reach. No distress noted at this time.
--- NOTE | 2017-01-24 19:50 | NUR ---
START OF SHIFT NOTE Pt is a 51 y/o male admitted for ETOH, Meth and marijuana dependence and use. Pt has NKA but reported a PMH of anxiety, depression, and has DM type 2. Per day shift nurse pt was placed on a 5 day Ativan taper and is tolerating medication well, with no s/e or a/r reported. Pt received Toradol IM PRN during the day shift. Last CIWA: 3 (1600). At this time pt is in his room watching television. Pt stated My leg is having some swelling. It got worse earlier today and its kind of hurting. I took Tylenol but thats not helping. Pt was told to elevate the affected extremity and was offered Motrin. Pt stated Ill take that with my bedtime meds. Pt is encouraged to notify staff of any changes in condition or of any concerns. Pt verbalized an understanding. All safety measures in place; side rails up x 2, bed locked and in low position and call light within reach. Will continue to monitor.
[2017-01-24 20:00] VITALS: BP 120/67
[2017-01-24] MEDS: QUETIAPINE FUMARATE 100 MG TABLET PO SCH (21:13)
[2017-01-24] MEDS: IBUPROFEN 600 MG TABLET PO PRN (21:14)
--- NOTE | 2017-01-24 21:14 | NUR ---
MOTRIN PRN ADMINISTRATION Pt stated " I have leg pain 12/11." Motrin 400 mg PO PRN was given. Will monitor for effectiveness
--- NOTE | 2017-01-24 22:14 | NUR ---
TIAN PRN REASSESSMENT Pt stated " my leg pain is better. Like a 09/13." PRN effective. Will continue to monitor.
[2017-01-25] VITALS: BP 128/70
--- NOTE | 2017-01-25 04:00 | NUR ---
CIWA AND VITALS DEFERRED Pt is asleep at this time. CIWA assessment deferred until client is awake. All safety measures in place. Will continue to monitor. Addendum: 01/25/17 at 0757 by DANIELLE NICKERSON LVN Amended: Links added.
--- NOTE | 2017-01-25 07:45 | NUR ---
END OF SHIFT NOTE Pt is a 51 y/o male admitted for ETOH, Meth and marijuana dependence and use. Pt has NKA but reported a PMH of anxiety, depression, and has DM type 2. Pt was placed on a 5 day Ativan taper and is tolerating medication well, with no s/e or a/r reported. Pt received Motrin 400 mg PO PRN during the shift. Last CIWA: 1 (0000). Pt slept for a total of 9 hours. All safety measures in place; side rails up x 2, bed locked and in low position and call light within reach. Endorsed to the oncoming nurse.
[2017-01-25] MEDS: BLOOD SUGAR DIAGNOSTIC 1 EACH STRIP VI SCH ×4 (07:48→21:03)
[2017-01-25 08:00] VITALS: BP 113/70
--- NOTE | 2017-01-25 08:00 | NUR ---
START OF SHIFT Pt 51 y/o male admitted for etoh withdrawals. Pt received in room on bed with eyes closed resting, but easily arousable to name. Pt alert and oriented to name, place, and time. Perrla. Skin warm and slightly moist to touch. respirations even and unlabored. It was reported that pt slept for 9 hours last night. Bed on lowest position with side rails x 2 up for safety. Call light within reach. No distress noted at this time.
[2017-01-25] MEDS: THIAMINE HCL 100 MG TABLET PO SCH (08:19)
[2017-01-25] MEDS: QUETIAPINE FUMARATE 25 MG TABLET PO SCH ×2 (08:19→18:04)
[2017-01-25] MEDS: METFORMIN HCL 500 MG TABLET PO SCH ×2 (08:19→18:04)
[2017-01-25] MEDS: GABAPENTIN 300 MG CAPSULE PO SCH ×3 (08:19→20:58)
[2017-01-25] MEDS: FOLIC ACID 1 MG TABLET PO SCH (08:19)
[2017-01-25] MEDS: LORAZEPAM 1 MG TABLET PO SCH ×3 (08:20→20:58)
[2017-01-25] MEDS: LACTOBACILLUS RHAMNOSUS GG 1 EACH CAPSULE PO SCH ×2 (08:20→20:58)
[2017-01-25] MEDS: CITALOPRAM 20 MG TABLET PO SCH (08:20)
[2017-01-25] MEDS: ACETAMINOPHEN ES 500 MG TABLET PO SCH ×3 (08:20→20:59)
[2017-01-25] MEDS: SULFAMETH/TRIMETH 800/160 MG TABLET PO SCH ×2 (08:20→20:59)
[2017-01-25] MEDS: MULTIVITAMINS,THERAPEUTIC TABLET PO SCH (08:20)
[2017-01-25] MEDS: KETOROLAC TROMETHAMINE 30 MG INJ IM PRN (08:20)
[2017-01-25] MEDS: INSULIN REGULAR, HUMAN 300 UNIT/3 ML VIAL SQ PRN (08:30)
[2017-01-25] MEDS: DOCUSATE SODIUM 250 MG CAPSULE PO SCH (08:33)
--- NOTE | 2017-01-25 11:59 | NUR ---
INSULIN Pt with OE=351oc/dL. Pt is to receive humalin R 3 units sq per sliding scale, but pt refused and stated, " I already got some this morning."
[2017-01-25 12:54] VITALS: BP 112/75
[2017-01-25 16:00] VITALS: BP 123/77
--- NOTE | 2017-01-25 16:21 | NUR ---
INSULIN Pt with VK=665yk/dL. Pt is to receive humulin R 2 units sq per sliding scale, but pt refused.
[2017-01-25 20:00] VITALS: BP 116/86
--- NOTE | 2017-01-25 20:00 | NUR ---
Start of Shift Pt is a 51 year old male admitted for ETOH dependence, placed on 5 day Ativan taper. PMH: DM II, Anxiety and Depression. NKA, NCS diet, fall/seizure precautions and full code. Upon assessment, pt reports body aches, reports mild anxiety, respirations even/unlabored, denies SOB/chest pain, denies n/v/d, bowel sounds active x4, abdomen soft. Safety measures in place, call light within reach, side rails up x2, bed locked and in low position. Will continue to monitor.
[2017-01-25] MEDS: QUETIAPINE FUMARATE 100 MG TABLET PO SCH (20:59)
--- NOTE | 2017-01-25 21:00 | NUR ---
INSULIN REFUSAL BS = 157mg/dL. Pt to receive Humulin R 2 units sq per sliding scale order, however pt refused. notified.
[2017-01-26] VITALS: BP 121/67
--- NOTE | 2017-01-26 | NUR ---
Vital Signs BP 121/67, pulse 72, SpO2 97%, respirations 14, temp 98, and no pain 0/10 CIWA deferred due to pt sleeping to assess while pt is awake as ordered. Safety measures in place. Will continue to monitor.
--- NOTE | 2017-01-26 04:00 | NUR ---
Pt refused to be woken up for 0400 VS CIWA deferred d/t pt sleeping to assess while pt is awake as ordered. Safety measures in place. Will continue to monitor.
--- NOTE | 2017-01-26 07:00 | NUR ---
End of Shift Pt is a 51 year old male admitted for ETOH dependence, placed on 5 day Ativan taper. PMH: DM II, Anxiety and Depression. NKA, NCS diet, fall/seizure precautions and full code. During shift, pt presented body aches, reports mild anxiety scheduled taper medications administered, effective in management of s/s of withdrawal as reported per pt, CIWA 2. BS = 157mg/dL. Pt was to receive Humulin R 2 units sq per sliding scale order, however pt refused MD notified. No PRN medications administered during shift. Pt slept for 4 hours, intake of 1091 ml PO, voids x2 and stool x0. Safety measures in place, call light within reach, side rails up x2, bed locked and in low position. Endorsed to day shift nurse.
--- NOTE | 2017-01-26 07:30 | NUR ---
START OF SHIFT NOTE Received pt alert awake oriented x4 in stable condition, 51 year old male patient admitted on 01/21/17 for ETOH, methamphetamine and Marijuana dependency. Pt is full code with NKA. Pt reported a PMH of DM type II, anxiety and depression. Pt reported drinking ETOH 1 liter of vodka daily for 1 month. Last dose was bottle of wine on 01/21/17, Methamphetamine 8th ball daily for 1 month. Last dose was on 01/21/17, Marijuana 1 gram daily for 1 month. Last dose was 1 gram on 01/19/17. Pt continues on Ativan taper started today 01/22/17 and tolerating well. Per night nurse pt refused his insulin coverage, no PRN were given slept for 4 hours, last CIWA-2. All safety measures in place, call light within reach. Will cont to monitor.
[2017-01-26] MEDS: BLOOD SUGAR DIAGNOSTIC 1 EACH STRIP VI SCH ×4 (07:41→20:18)
--- NOTE | 2017-01-26 07:41 | NUR ---
BLOOD SUGAR CHECK Blood sugar checked result noted 111. Pt not due for any coverage. Pt is in stable condition no c/o any discomfort or s/s of hypo/hyperglycemia.
[2017-01-26 08:00] VITALS: BP 110/67
[2017-01-26] MEDS: SULFAMETH/TRIMETH 800/160 MG TABLET PO SCH ×2 (08:41→20:11)
[2017-01-26] MEDS: THIAMINE HCL 100 MG TABLET PO SCH (08:41)
[2017-01-26] MEDS: GABAPENTIN 300 MG CAPSULE PO SCH ×3 (08:41→20:11)
[2017-01-26] MEDS: FOLIC ACID 1 MG TABLET PO SCH (08:41)
[2017-01-26] MEDS: CITALOPRAM 20 MG TABLET PO SCH (08:41)
[2017-01-26] MEDS: METFORMIN HCL 500 MG TABLET PO SCH ×2 (08:41→17:00)
[2017-01-26] MEDS: DOCUSATE SODIUM 250 MG CAPSULE PO SCH (08:41)
[2017-01-26] MEDS: LACTOBACILLUS RHAMNOSUS GG 1 EACH CAPSULE PO SCH ×2 (08:41→20:12)
[2017-01-26] MEDS: LORAZEPAM 1 MG TABLET PO SCH ×2 (08:41→20:12)
[2017-01-26] MEDS: ACETAMINOPHEN ES 500 MG TABLET PO SCH ×3 (08:42→20:11)
[2017-01-26] MEDS: QUETIAPINE FUMARATE 25 MG TABLET PO SCH ×2 (08:42→16:52)
[2017-01-26] MEDS: MULTIVITAMINS,THERAPEUTIC TABLET PO SCH (08:42)
--- NOTE | 2017-01-26 11:47 | NUR ---
BLOOD SUGAR RESULT/REFUSED INSULIN Pt's blood sugar result noted 153mg/dl, and pt refused to take 2 units of insulin offered x3 risk and benefits explained. Pt still refused. Pt is in stable condition no s/s of distress noted. MD notified. Will cont to monitor.
[2017-01-26 12:00] VITALS: BP 108/74
[2017-01-26 16:00] VITALS: BP 112/71
--- NOTE | 2017-01-26 16:50 | NUR ---
BLOOD SUGAR RESULT blood sugar result noted 125mg/dl. No coverage needed per sliding scale at this time. Pt is in stable condition. Will cont to monitor.
--- NOTE | 2017-01-26 19:17 | NUR ---
END OF SHIFT NOTE Patient admitted for ETOH, methamphetamine and Marijuana dependence. Pt is full code with NKA. Pt reported a PMH of DM type II, anxiety and depression. Pt continues on Ativan taper tolerating well. Pt refused his insulin at 1200. Risks and benefits were explained x3, pt still refused. Dr. Green made aware. During shift pt did not receive any PRN medication. Vital signs within normal range. Encouraged pt to attend groups and activities to learn new coping skills with good verbal understanding. Encouraged Po fluids as tolerated well. All safety measures in place, call light within reach. Pt endorsed to night nurse in stable condition.
[2017-01-26 20:00] VITALS: BP 115/69
--- NOTE | 2017-01-26 20:00 | NUR ---
Start of Shift Pt is a 51 year old male admitted for ETOH dependence, placed on 5 day Ativan taper. PMH: DM II, Anxiety and Depression. NKA, NCS diet, fall/seizure precautions and full code. Upon assessment, pt reports mild anxiety, pt reports muscle aches in lower legs , skin noted to be clammy, respirations even/unlabored, denies SOB/chest pain, denies n/v/d, bowel sounds active x4, abdomen soft. Safety measures in place, call light within reach, side rails up x2, bed locked and in low position. Will continue to monitor.
[2017-01-26] MEDS: QUETIAPINE FUMARATE 100 MG TABLET PO SCH (20:11)
--- NOTE | 2017-01-26 21:00 | NUR ---
Blood Sugar BS = 123mg/dL. Pt not due for any coverage per orders. No signs/symptoms of hypo/hyperglycemia.
--- NOTE | 2017-01-27 | NUR ---
Pt refused to be woken up for 0000 VS CIWA deferred d/t pt sleeping - to assess while pt is awake as ordered. Safety measures in place, Will continue to monitor.
--- NOTE | 2017-01-27 04:00 | NUR ---
Pt refused to be woken up for 0400 VS CIWA deferred d/t pt sleeping - to assess while pt is awake as ordered. Safety measures in place, Will continue to monitor.
[2017-01-27] MEDS: IBUPROFEN 600 MG TABLET PO PRN (06:19)
--- NOTE | 2017-01-27 06:19 | NUR ---
PRN Administration Pt reported pain in right ankle, rated 6/10. Pt requested relief. Motrin 600mg PRN administered. safety measures in place. Will endorse onto day shift nurse to monitor effectiveness.
--- NOTE | 2017-01-27 07:00 | NUR ---
End of Shift Pt is a 51 year old male admitted for ETOH dependence, placed on 5 day Ativan taper. PMH: DM II, Anxiety and Depression. NKA, NCS diet, fall/seizure precautions and full code. During shift, pt reported mild anxiety, reported muscle aches in lower legs , skin noted to be clammy - scheduled medications administered, effective in management of s/s of withdrawal as reported per pt, CIWA 3. During shift, BS = 123mg/dL. Pt was not due for any coverage per orders. No signs/symptoms of hypo/hyperglycemia. No PRN medications administered during shift. Pt slept for 8 hours, intake of 3182 ml PO, voids x4 and stool x1. Safety measures in place, call light within reach, side rails up x2, bed locked and in low position. Endorsed to day shift nurse.
--- NOTE | 2017-01-27 07:19 | NUR ---
START OF SHIFT NOTE Received pt alert awake oriented x4 in stable condition, 51 year old male patient admitted on 01/21/17 for ETOH, methamphetamine and Marijuana dependency. Pt is full code with NKA. Pt reported a PMH of DM type II, anxiety and depression. Pt reported drinking ETOH 1 liter of vodka daily for 1 month. Last dose was bottle of wine on 01/21/17, Methamphetamine 8th ball daily for 1 month. Last dose was on 01/21/17, Marijuana 1 gram daily for 1 month. Last dose was 1 gram on 01/19/17. Pt continues on Ativan taper tolerating well. Per night nurse pt received PRN Motrin slept for 8 hours, last CIWA-3. All safety measures in place, call light within reach. Pt reported Motrin is effective and pain level decreased to 1/10. Will cont to monitor.
[2017-01-27] MEDS: BLOOD SUGAR DIAGNOSTIC 1 EACH STRIP VI SCH ×4 (07:41→20:48)
--- NOTE | 2017-01-27 07:41 | NUR ---
BLOOD SUGAR RESULT/REFUSED INSULIN Pt's blood sugar result noted 133mg/dl, per sliding scale pt due for 2 units of regular insulin. Pt refused his insulin offered x3 risk and benefits explained, pt still refused. notified. Pt is in stable condition alert oriented x4. Will cont to monitor.
[2017-01-27 08:00] VITALS: BP 114/64
[2017-01-27] MEDS: METFORMIN HCL 500 MG TABLET PO SCH ×2 (08:30→17:00)
[2017-01-27] MEDS: DOCUSATE SODIUM 250 MG CAPSULE PO SCH (08:31)
[2017-01-27] MEDS: THIAMINE HCL 100 MG TABLET PO SCH (08:31)
[2017-01-27] MEDS: FOLIC ACID 1 MG TABLET PO SCH (08:31)
[2017-01-27] MEDS: MULTIVITAMINS,THERAPEUTIC TABLET PO SCH (08:31)
[2017-01-27] MEDS: CITALOPRAM 20 MG TABLET PO SCH (08:31)
[2017-01-27] MEDS: ACETAMINOPHEN ES 500 MG TABLET PO SCH ×3 (08:31→20:44)
[2017-01-27] MEDS: GABAPENTIN 300 MG CAPSULE PO SCH ×3 (08:31→20:44)
[2017-01-27] MEDS: LACTOBACILLUS RHAMNOSUS GG 1 EACH CAPSULE PO SCH ×2 (08:31→20:44)
[2017-01-27] MEDS: SULFAMETH/TRIMETH 800/160 MG TABLET PO SCH (08:31)
[2017-01-27] MEDS: QUETIAPINE FUMARATE 25 MG TABLET PO SCH ×2 (09:45→16:45)
[2017-01-27] MEDS: INSULIN REGULAR, HUMAN 300 UNIT/3 ML VIAL SQ PRN (11:48)
--- NOTE | 2017-01-27 11:48 | NUR ---
BLOOD SUGAR RESULT Pt's blood sugar noted 183mg/dl. Administered 3 unit of regular insulin as order per sliding scale on left deltoid. Injection site clean and dry no s/s of bleeding no swelling noted. All safety measures in place. Will cont to monitor.
[2017-01-27 12:00] VITALS: BP 100/62
[2017-01-27] MEDS: HYDROXYZINE PAMOATE 25 MG CAPSULE PO PRN (14:04)
--- NOTE | 2017-01-27 14:04 | NUR ---
PRN VISTARIL Pt c/o of anxiety, agitation, non pharmacological intervention ineffective. Administered PRN Vistaril 50mg as ordered. Side effect of the medication explained with good verbal understanding. All safety measures in place. Will cont to monitor and reassess.
[2017-01-27] MEDS ORDERED: QUET100T PO (14:11)
[2017-01-27] MEDS ORDERED: HYDR-3895 PO (14:11)
[2017-01-27] MEDS ORDERED: LACT1CAP57 PO (14:11)
[2017-01-27] MEDS ORDERED: QUET25TA PO (14:11)
--- NOTE | 2017-01-27 14:33 | NUR ---
Therapist reminded client of group times. Client stated he would attend all groups.
--- NOTE | 2017-01-27 15:04 | NUR ---
REASSESSMENT Pt reported medication effective, anxiety and agitation subside. Will cont to monitor.
[2017-01-27] MEDS: KETOROLAC TROMETHAMINE 30 MG INJ IM PRN (15:12)
--- NOTE | 2017-01-27 15:12 | NUR ---
PRN TORADOL Pt c/o of lower extremities pain with pain scale 8/10, non pharmacological intervention ineffective. Administered PRN Toradol 30mg Im as ordered, Side effect of the medication explained with good verbal understanding. All safety measures in place. Will cont to monitor and reassess.
--- NOTE | 2017-01-27 15:32 | NUR ---
PRN TORADOL REASSESSMENT Upon reassessment pt reported medication effective pain level decreased to 2/10. Will cont to monitor.
[2017-01-27 16:00] VITALS: BP 107/68
--- NOTE | 2017-01-27 16:43 | NUR ---
BLOOD SUGAR RESULT Pt's blood sugar result noted with 125mg/dl no coverage needed per sliding scale. Will cont to monitor.
--- NOTE | 2017-01-27 19:07 | NUR ---
END OF SHIFT NOTE Pt completed his Ativan taper tolerated well. Pt presented with anxiety, agitation, lower extremities pain. Pt given PRN Vistaril, Toradol IM. Last CIWA noted 3. Vital signs within normal range. Encouraged pt to attend groups and activities to learn new coping skills with good verbal understanding. Encouraged Po fluids as tolerated well. Pt scheduled for discharge in AM. All safety measures in place, call light within reach. Pt endorsed to night nurse in stable condition.
[2017-01-27 20:00] VITALS: BP 118/64
--- NOTE | 2017-01-27 20:00 | NUR ---
Start of Shift Pt is a 51 year old male admitted for ETOH dependence, placed on 5 day Ativan taper - completed. PMH: DM II, Anxiety and Depression. NKA, NCS diet, fall/seizure precautions and full code. Upon assessment, anxiety, pt reports muscle aches in lower legs , respirations even/unlabored, denies SOB/chest pain, denies n/v/d, bowel sounds active x4, abdomen soft. Pt is scheduled for discharge tomorrow. Safety measures in place, call light within reach, side rails up x2, bed locked and in low position. Will continue to monitor.
[2017-01-27] MEDS: QUETIAPINE FUMARATE 100 MG TABLET PO SCH (20:45)
--- NOTE | 2017-01-27 21:00 | NUR ---
Blood Sugar BS = 108mg/dL. Pt not due for any coverage per orders. No signs/symptoms of hypo/hyperglycemia.
[2017-01-28] VITALS: BP 107/56
--- NOTE | 2017-01-28 | NUR ---
Vital Signs BP 107/56, pulse 62, respirations 16, SpO2 97%, temp 97.9, no pain 0/10 CIWA deferred d/t pt sleeping to assess while pt is awake as ordered. Safety measures in place. Will continue to monitor.
[2017-01-28 05:27] LABS: *AMPHETAMINE, URINE NEGATIVE (NEGATIVE); *BARBITURATE, URINE NEGATIVE (NEGATIVE); *CANNABINOID, URINE NEGATIVE (NEGATIVE); *COCCAINE, URINE NEGATIVE (NEGATIVE); *OPIATE, URINE NEGATIVE (NEGATIVE); *PHENCYCLIDINE SCREEN,URINE NEGATIVE (NEGATIVE)
--- NOTE | 2017-01-28 07:00 | NUR ---
End of Shift Pt is a 51 year old male admitted for ETOH dependence, placed on 5 day Ativan taper - completed. PMH: DM II, Anxiety and Depression. NKA, NCS diet, fall/seizure precautions and full code. During shift, pt presented with anxiety, reported muscle aches in lower legs - scheduled medications administered. BS = 108 - no coverage required per sliding scale orders, no s/s of hypo/hyperglycemia. Pt is scheduled for discharge today. Pt slept for 8 hours, intake of 536 ml PO, voids x1 and stool x1. Safety measures in place, call light within reach, side rails up x2, bed locked and in low position. Endorsed to day shift nurse.
--- NOTE | 2017-01-28 07:01 | NUR ---
Start of Shift Notes: Received patient in his room. Alert and verbally responsive. Oriented x 4. Able to make his needs known. Respirations even and unlabored. No SOB noted. Skin warm and dry to touch. Abdomen soft and non-distended with (+) BS in all 4 quadrants. No complains of N/V/D or abdominal discomfort noted. Bladder non-distended. No complains of dysuria. Voids independently. Ambulatory ad tino with steady gait. Patient is a 51 year old male admitted for ETOH and methamphetamine dependence who was placed on a 5-day Ativan taper that has been completed. Discharge pending. Has past medical hx of DM type II, anxiety and depression. NKA. FULL CODE. On fall and seizure precautions. Educated patient on his current plan of care for the day and his medication regimen. Encouraged oral fluid intake and encouraged group participation to learn new skills to prevent relapse. Will continue to monitor.
[2017-01-28] MEDS: BLOOD SUGAR DIAGNOSTIC 1 EACH STRIP VI SCH ×4 (07:47→20:31)
[2017-01-28 08:00] VITALS: BP 104/69
[2017-01-28] MEDS: DOCUSATE SODIUM 250 MG CAPSULE PO SCH (08:34)
[2017-01-28] MEDS: GABAPENTIN 300 MG CAPSULE PO SCH ×3 (08:34→20:27)
[2017-01-28] MEDS: LACTOBACILLUS RHAMNOSUS GG 1 EACH CAPSULE PO SCH ×2 (08:34→20:27)
[2017-01-28] MEDS: THIAMINE HCL 100 MG TABLET PO SCH (08:34)
[2017-01-28] MEDS: METFORMIN HCL 500 MG TABLET PO SCH ×2 (08:34→17:02)
[2017-01-28] MEDS: ACETAMINOPHEN ES 500 MG TABLET PO SCH ×3 (08:35→20:27)
[2017-01-28] MEDS: QUETIAPINE FUMARATE 25 MG TABLET PO SCH ×2 (08:35→17:02)
[2017-01-28] MEDS: FOLIC ACID 1 MG TABLET PO SCH (08:35)
[2017-01-28] MEDS: CITALOPRAM 20 MG TABLET PO SCH (08:35)
[2017-01-28] MEDS: MULTIVITAMINS,THERAPEUTIC TABLET PO SCH (08:35)
[2017-01-28] MEDS: INSULIN REGULAR, HUMAN 300 UNIT/3 ML VIAL SQ PRN (08:38)
[2017-01-28 12:00] VITALS: BP 90/60
--- NOTE | 2017-01-28 13:00 | NUR ---
Mid Shift Notes: CIWS 0. Patient is in his room. Eating lunch. BS AC lunch 110. No diabetic reactions noted. No insulin coverage needed per sliding scale.
[2017-01-28 16:00] VITALS: BP 134/81
--- NOTE | 2017-01-28 18:51 | NUR ---
End of Shift Notes: Patient is a 51 year old male admitted for ETOH dependence who was placed on a a 5-day Ativan taper as ordered and completed. Discharge pending. No delayed reactions noted from Ativan. Prior to admission, patient was using 1L of Vodka for 1 month. VS monitored closely. No significant abnormalities noted. Withdrawal symptoms were closely monitored. CIWA 1. Last CIWA 0. Mild anxiety noted. Able to participate in group and therapy sessions. BS monitored closely q AC and PRN with RI coverage per SS. No s/s of hypo/hyperglycemia noted. No diabetic reactions noted. Oral fluids encouraged. Educated patient on diabetic diet regimen. Safety precautions in place. All needs met and attended. Will continue to monitor closely.
[2017-01-28 20:00] VITALS: BP 110/65
--- NOTE | 2017-01-28 20:00 | NUR ---
Start of Shift Patient is a 51-year old, male, admitted for ETOH dependence. Pt is Full Code, on Diabetic Diet and with NKA. With PMHx of DM II, Anxiety and Depression. Pt was placed on a 5-day Ativan taper-completed and with no adverse reactions. For discharge tomorrow and pt is aware. On accu check ACHS with sliding scale coverage. Pt is AAOx4 and with mild anxiety noted. No SOB noted, not in respi distress. Pt is ambulatory with use of cane d/t intermitted BLE pain. On PRN Toradol. No skin issues. Fall, universal, seizure and safety prec in place. Call light within reach. Latest CIWA=1. Will continue to monitor.
[2017-01-28] MEDS: QUETIAPINE FUMARATE 100 MG TABLET PO SCH (20:27)
--- NOTE | 2017-01-28 20:32 | NUR ---
RN note Accu Check Accu Check done, MW=710 mg/dL. No coverage per MD sliding scale.
[2017-01-29] VITALS: BP 125/73
--- NOTE | 2017-01-29 04:00 | NUR ---
RN note Vital Signs refusal Pt refused vital signs check despite explanation of risks and benefits. Per pt, "I am going to be discharged in a bit. Take my vital signs later." RR=16.
--- NOTE | 2017-01-29 07:10 | NUR ---
End of Shift Patient is a 51-year old, male, admitted for ETOH dependence. Pt is Full Code, on Diabetic Diet and with NKA. With PMHx of DM II, Anxiety and Depression. Pt was placed on a 5-day Ativan taper-completed and with no adverse reactions. For discharge tomorrow and pt is aware. On accu check ACHS with sliding scale coverage. Pt is AAOx4 and with mild anxiety noted. No SOB noted, not in respi distress. Pt is ambulatory with use of cane d/t intermitted BLE pain. On PRN Toradol. No skin issues. Fall, universal, seizure and safety prec in place. Call light within reach. Latest CIWA=1, slept for 7 hours. Endorsed to AM shift nurse for continuity of care. Addendum: 01/29/17 at 0712 by ZANE POE RN For discharge today.
--- NOTE | 2017-01-29 07:25 | NUR ---
Discharge Pt left the unit at 0730 with all belongings and paperworks. Pt signed all needed documents. Vital signs are stable. No SOB noted and not in respi distress. Latest CIWA before discharge was 1. Pt verbalized understanding of discharge instructions. Pt is ambulatory with use of assistive device-cane. ID band removed and patient ambulated off the unit. Pt picked up by [facility].
== END 2017-01-29 07:27 | disposition other institution (70) | DRG 895 ==
LOC: SRC 01-21 12:18
PROVIDERS: ADMIT Internal Medicine; ATTEND Internal Medicine
PROC: HZ2ZZZZ Detoxification Services for Substance Abuse Treatment (ICD-10-PCS; principal; 2017-01-21)
PROC: HZ41ZZZ Group Counseling for Substance Abuse Treatment, Behavioral (ICD-10-PCS; 2017-01-24)
DX: F10.230 Alcohol dependence with withdrawal, uncomplicated (principal); F32.3 Major depressive disorder, single episode, severe with psychotic features; L03.116 Cellulitis of left lower limb; Y90.9 Presence of alcohol in blood, level not specified; F15.93 Other stimulant use, unspecified with withdrawal; E11.9 Type 2 diabetes mellitus without complications; F17.210 Nicotine dependence, cigarettes, uncomplicated; Z59.0 Homelessness; F41.9 Anxiety disorder, unspecified; Z79.84 Long term (current) use of oral hypoglycemic drugs
CPT/HCPCS: 36415; 70030-TC; 71010; 80307; 80324; 80349; 83690; 83735; 85025; 86592; 86705; 86803; 87340; 87806; A4663; G0480; J1815; J1885; J3411